=== PATIENT | male | born 1950 | race Caucasian/White ===

== ENCOUNTER → 2019-04-15 13:45 | Outpatient (BNVA) | payer MEDICAID, SELFPAY | PROVIDERS: Family Provider Nurse Practitioner Family; PCP Nurse Practitioner Family; Visit Provider Nurse Practitioner Family | DX: R22.32 Localized swelling, mass and lump, left upper limb (principal); J44.1 Chronic obstructive pulmonary disease with (acute) exacerbation | CPT/HCPCS: 73130; 80053; 85025 ==

== ENCOUNTER → 2019-07-15 14:45 | Outpatient (BNVA) | payer MEDICAID, SELFPAY | PROVIDERS: Family Provider Nurse Practitioner Family; PCP Nurse Practitioner Family; Visit Provider Nurse Practitioner | DX: J44.9 Chronic obstructive pulmonary disease, unspecified (principal); L72.0 Epidermal cyst | CPT/HCPCS: 73130 ==

== ENCOUNTER → 2020-07-30 14:45 | Outpatient (BNVA) | payer MEDICAID, SELFPAY | PROVIDERS: Family Provider Nurse Practitioner Family; PCP Nurse Practitioner Family; Visit Provider Nurse Practitioner | DX: J44.9 Chronic obstructive pulmonary disease, unspecified (principal); Z13.6 Encounter for screening for cardiovascular disorders | CPT/HCPCS: 80053; 80061; 85025 ==

== ENCOUNTER → 2020-10-16 00:01 | Outpatient (BNVA) | payer MEDICAID, SELFPAY | PROVIDERS: Family Provider Nurse Practitioner Family; PCP Nurse Practitioner Family; Visit Provider Surgery | DX: Z01.812 Encounter for preprocedural laboratory examination (principal); Z20.822 Contact with and (suspected) exposure to COVID-19 | CPT/HCPCS: 87635 ==

== ENCOUNTER 2020-11-04 07:07 | Day surgery (SDC) | payer MEDICAID, SELFPAY ==
[2020-11-03 12:17] VITALS: BMI 24.2
[2020-11-04 07:23] VITALS: BP 161/96; PULSE 60; RESP 18; TEMP 36.5; O2SAT 95
[2020-11-04] MEDS: sodium chloride 0.9% 1,000 ML 30 ML IV (07:41)
--- NOTE | 2020-11-04 07:42 | ANES.PREANE2 ---
Pre-Anesthetic Assessment Pre-Anesthetic Assessment: Height/Weight: Height 1.68 m Weight 68.039 kg Temp Pulse Resp BP Pulse Ox 97.7 F 60 18 161/96 95 11/04/20 07:23 11/04/20 07:23 11/04/20 07:23 11/04/20 07:23 11/04/20 07:23 Preop Diagnosis: Mass left ring finger Proposed Procedure: Operation Date: 11/04/20 07:00 Proposed Procedures p excision of finger mass w/ possible skin graft 68345 L72.0(Left) - Anderson Bullard MD Was Beta Aaliyah taken within 24 hours: N/A Was Clonidine taken within 24 hours: N/A Last intake: Intake Last Liquid Date 11/03/20 Last Liquid Time 20:00 Last Solid Date 11/03/20 Last Solid Time 20:00 Social: Social History: No alcohol and No tobacco Exam: Pre-Anes Outpt Exam: alert, oriented x 3, clear to auscultation bilaterally and regular rate & rhythm Airway: Submandibular: WNL Cervical ROM: WNL MP: 2 Dentition: Loose Additional comments: Several missing History/ROS: No significant history except as noted and No significant complaints Pulmonary: Pulmonary: COPD and SOB CV/HEM: CV/HEM: None reported : : None reported Hepatic: Hepatic: None reported GI: GI: None reported Metabolic: Metabolic: None reported Musc/skel: Musc/skel: None reported Neuropsych: Neuropsych: None reported Anesthetic Plan: ASA status: 3 Anesthesia: Anesthesia Evaluation and MAC Risk of > 500 ml blood loss (7ml/kg in children): No Meds/Allergies Current Medications: Current Medications Generic Name Dose Route Start Last Admin Trade Name Freq PRN Reason Stop Dose Admin Sodium Chloride 1,000 mls @ 30 ml s/hr 11/04/20 07:30 11/04/20 07:41 Sodium Chloride 0.9% IV 11/05/20 07:29 30 mls/hr .Q24H MANUEL Administration PFSH Anesthesia PFSH: Medical History (Updated 09/22/20 @ 17:13 by Anderson Bullard MD) COPD (chronic obstructive pulmonary disease) Surgical History History of lung surgery Right lung 2010 Family History Denies family history of Diabetes Cancer Hypertension Social History Second hand smoke exposure: No Smoking risk assessment/counseling performed?: No Alcohol intake: never Desire information about alcohol rehabilitation?: No Counseling given: No Desire information about substance/drug rehabilitation?: No Counseling given: No Adopted: No Caregiver/support person: No Lives independently: Yes Household members: family Marital status: Single Number of children: 0 service: No Current occupational status: unemployed History of recent travel: No Current gender identity: Male Data Anesthesia Cardiac Studies: No Data to Display
--- NOTE | 2020-11-04 07:45 | P.HP_ITS ---
Same Day Surgery H&P Indication for Procedure/HPI DATE OF PROCEDURE: November 04, 2020 CHIEF COMPLAINT/INDICATIONFOR SURGICAL PROCEDURE: subcutaneous mass finger PREOP DIAGNOSIS: Mass left ring finger PLANNED PROCEDRUE: Operation Date: 11/04/20 07:00 Proposed Procedures p excision of finger mass w/ possible skin graft 32740 L72.0(Left) - Anderson Bullard MD Medications/Allergies* Allergies/Adverse Reactions Allergy/AdvReac Type Severity Reaction Status Date / Time No Known Allergies Allergy Verified 11/03/20 12:16 Current Medications: Generic Name Dose Route Start Last Admin Trade Name Freq PRN Reason Stop Dose Admin Sodium Chloride 1,000 mls @ 30 mls/hr 11/04/20 07:30 11/04/20 07:41 Sodium Chloride 0.9% IV 11/05/20 07:29 30 mls/hr .Q24H MANUEL Administration Pertinent History/Comorbid Conditions* Medical History (Updated 09/22/20 @ 17:13 by Anderson Bullard MD) COPD (chronic obstructive pulmonary disease) Surgical History (Updated 07/15/19 @ 14:00 by PAUL De La Cruz-C) History of lung surgery Right lung 2010 Family History (Updated 07/15/19 @ 13:47 by JONNA Toledo) Denies family history of Diabetes Cancer Hypertension Social History Second hand smoke exposure: No Smoking risk assessment/counseling performed?: No Alcohol intake: never Desire information about alcohol rehabilitation?: No Counseling given: No Desire information about substance/drug rehabilitation?: No Counseling given: No Adopted: No Caregiver/support person: No Lives independently: Yes Household members: family Marital status: Single Number of children: 0 service: No Current occupational status: unemployed History of recent travel: No Current gender identity: Male Pertinent Exam Findings alert, oriented x 3, regular rate & rhythm and operative site marked Recommendations Surgery/Procedure today Coding Level of Care Code Acute 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
[2020-11-04] MEDS: lidocaine 1% INJ 20 mL SUBCUT (08:13)
--- NOTE | 2020-11-04 08:42 | PM.OP ---
Operative Report Date of procedure: November 04, 2020 Pre-op Diagnosis: Subcutaneous mass left ring finger Post-op Diagnosis: 5 x 3 x 3 cm subcutaneous mass left ring finger Procedure Done: Excision of subcutaneous mass measuring 5 x 3 x 3 cm left ring finger Specimens removed/disposition: Mass left ring finger Surgeon: Anderson Bullard Anesthesia: MAC and General Condition: stable Disposition: PACU Procedure: The patient was taken to the operating room and placed under MAC and the left hand was prepped and draped in a sterile manner. 15 cc of 1% lidocaine with 0.5% Marcaine was infiltrated at the base of the left ring finger for digital block. The mass measured 5 x 3 x 3 cm on the dorsal aspect of the left ring finger over the first phalanx. Using a 15 blade 5 cm incision was made and the subcutaneous mass was dissected free from the surrounding skin and underlying tendon sheath. Excess skin was excised using a fresh 15 blade and the subcutaneous tissues were approximated using interrupted 3-0 Vicryl suture and skin was closed using running subcuticular 4-0 Monocryl suture and Dermabond. Finger splint was placed to avoid excessive flexion and wrapped with Kerlix gauze. The patient was transferred to recovery room in stable condition
[2020-11-04 09:35] VITALS: BP 142/68; PULSE 66; RESP 20; TEMP 36.3; O2SAT 99
[2020-11-04 09:40] VITALS: BP 144/83; PULSE 57; RESP 17; O2SAT 97
[2020-11-04 09:45] VITALS: BP 143/69; PULSE 55; RESP 17; TEMP 36.6; O2SAT 97
[2020-11-04 10:05] VITALS: BP 164/79; PULSE 54; RESP 18; O2SAT 99
--- NOTE | 2020-11-04 14:00 | ANE.PACU2 ---
Inpatient post-anesthesia follow up: Airway intact: Yes Vital signs: Temperature 97.8 F Pulse Rate 54 Respiratory Rate 18 Blood Pressure 164/79 Pulse Oximetry 99 Oxygen Delivery Me thod Nasal Cannula Oxygen Flow Rate Fraction of Inspir ed Oxygen Hydration adequate: Yes Nausea and vomiting: No Pain level: 1 Mental status: Baseline
== END 2020-11-04 10:33 | disposition home or self-care (01) ==
PROVIDERS: PCP Nurse Practitioner Family; Visit Provider Surgery
PROC: (CPT 11426; principal; 2020-11-04 07:00)
DX: D17.39 Benign lipomatous neoplasm of skin and subcutaneous tissue of other sites (principal); L98.9 Disorder of the skin and subcutaneous tissue, unspecified; J44.9 Chronic obstructive pulmonary disease, unspecified
CPT/HCPCS: 11426; 12042; 88304; J0690; J1100; J2405; J2704; J3490; J7030

== ENCOUNTER 2021-08-07 18:12 | Emergency (ER) | payer MEDICAID, SELFPAY ==
[2021-08-07 18:36] VITALS: BP 162/85; PULSE 102; RESP 22; TEMP 37.8; O2SAT 90; BMI 24.2
[2021-08-07 18:40] VITALS: O2SAT 91
[2021-08-07 22:00] LABS: Hematocrit 51.8 % (42.0-52.0); Hemoglobin 17.7 g/dL (11.7-16.6); Lymphocytes # 0.8 10^3/uL (0.8-4.8); Lymphocytes % 25.8 %; Mean Corpuscular HGB Conc 34.2 g/dL (30.0-36.0); Mean Corpuscular Hemoglobin 28.9 pg (28.0-34.0); Mean Corpuscular Volume 84.5 fl (80-94); Mean Platelet Volume 10.9 fL (7.4-10.4); Monocytes # 0.2 10^3/uL (0.2-0.9); Monocytes % 6.7 %; Neutrophils # 1.95 10^3/uL (1.8-7.7); Neutrophils % 65.5 %; Nucleated Red Blood Cells % 0 %; Platelet Count 56 10^3/cmm (130-400); Red Blood Count 6.13 10^6/uL (4.1-5.3); Red Cell Distribution Width 12.8 % (12.1-15.1)
[2021-08-07 22:17] VITALS: BP 160/98; PULSE 94; RESP 20; TEMP 37.8; O2SAT 97
[2021-08-07 22:25] LABS: Alanine Aminotransferase 28 U/L (0-41); Albumin Level 4.4 g/dL (3.5-5.2); Alkaline Phosphatase 101 IU/L (40-130); Anion Gap 14.4 (5-19); Aspartate Amino Transferase 42 U/L (0-40); Blood Urea Nitrogen 27 mg/dL (8-23); Calcium 9.6 mg/dL (8.5-10.5); Carbon Dioxide 30 mmol/L (22-29); Chloride 91 mmol/L (98-107); Glomerular Filtration Rate 59.9 mL/min (90-130); Glucose 107 mg/dL (65-115); Lipase 22 U/L (13-60); Osmolality Calculated 278 mOsm/kg (285-295); Potassium 4.4 mmol/L (3.5-5.1); Sodium 131 mmol/L (136-145); Total Bilirubin 0.9 mg/dL (0.15-1.2); Total Protein 7.4 g/dL (6.6-8.7)
[2021-08-07 22:28] LABS: Influenza A by IFA Negative (Negative); Influenza B by IFA Negative (Negative)
--- NOTE | 2021-08-07 22:41 | ED_ITS ---
Documented by User: Juju Hickey MD 08/09/21 16:46 HPI - General Adult General: Chief complaint: General Medical Stated complaint: DECREASED APPETITE Time Seen by Provider: 08/07/21 21:48 History of Present Illness: Patient is a 71-year-old male with a history of prior left-sided pneumonectomy, COPD who presents to the emergency room for evaluation of abdominal pain, chest pain, and headache. Patient tells me that she has been having symptoms for last 3 to 4 days. Patient has not imaging chest pressure lasting for 3 to 4 minutes at a time. Patient said the chest pressure is now worse with exertion, is not pleuritic and does not radiate towards the back. Patient denies any cough, runny nose sore throat, fever or chills. In addition, patient reports generalized abdominal pain that shoots towards the chest. Patient tells me that during these episodes he also has headache. Dull please not worse with p.o. intake. Patient tells me that headache lasts for a few minutes at a time. Patient denies any focal neurological deficits including weakness in the arms or legs, language finding difficulty, expressive aphasia, diplopia, facial droops or other neurological symptoms patient patient denies any melena/hematochezia, or complaints at thi s time. He currently does not have any of the symptoms of chest pain, headache, or abdominal pain. Patient denies any sick contacts around him. Patient denies any complaints at the present time. Onset: 3-4 days ago Duration:3-4 days Location:home Severity:mild/moderate Associated symptoms: Reports chest pain; Deny dyspnea, nausea, rash, palpitations or vomiting Review of Systems Const: Denies: fever(s) or chills Eyes: Denies: change in vision ENMT: Denies: mouth pain Card: Reports: chest pain; Denies: palpitations Resp: Denies: dyspnea or non-productive cough GI: Reports: abdominal pain; Denies: nausea, vomiting or diarrhea : Denies: dysuria Musc: Denies: extremity pain Skin/Breast: Denies: rash or new lesions Neuro: Reports: other (headache); Denies: weakness in extremities Psych: Reports: other (Normal mood) Goldy/Lymph: Denies: easy bruising PFS ED PFSH: Medical History COPD (chronic obstructive pulmonary disease) Surgical History H/O excision of mass (11/04/20) left ring finger History of lung surgery Right lung 2010 Family History Denies family history of Diabetes Cancer Hypertension Social History Smoking and tobacco status: never smoked Second hand smoke exposure: No Smoking risk assessment/counseling performed?: No Alcohol intake: never Desire information about alcohol rehabilitation?: No Counseling given: No Desire information about substance/drug rehabilitation?: No Counseling given: No Adopted: No Caregiver/support person: No Lives independently: Yes Household members: family Marital status: Single Number of children: 0 service: No Current occupational status: unemployed History of recent travel: No Current gender identity: Male Physical Exam Const: COMMON NORMALS: alert HENMT: COMMON NORMALS: atraumatic HEAD & SCALP: atraumatic MOUTH: moist mucous membranes not abnormal Eye: COMMON NORMALS: EOMs intact bilaterally and conjunctivae normal CONJUNCTIVA: Yes conjunctivae normal Neck/C-Spine: COMMON NORMALS: full ROM and supple Resp: COMMON NORMALS: normal respiratory effort and clear to auscultation bilaterally AUSCULTATION: clear to auscultation bilaterally Cardio: COMMON NORMALS: regular rate RATE: regular rate GI: COMMON NORMALS: Soft to palpation PALPATION: Yes Soft to palpation OTHER: + Mild diffuse tenderness palpation. NO guarding rebound, guarding, rigidity. No CVA tenderness to percussion. Neg Mario/Neg McBurney's point tenderness, no suprabupic tenderness to palpation. Extremity: COMMON NORMALS: full ROM Neuro: SENSORIUM/ORIENTATION: Yes alert MOTOR EXAM: No Abnormal motor strength present and Other motor observations present (no focal motor deficits) Psych: COMMON NORMALS: speech normal SPEECH: Yes normal speech MOOD & AFFECT: Yes euthymic mood Course Vital Signs: Vital signs: Vital Signs Temperature 99.0 F 08/08/21 00:02 Pulse Rate 88 08/08/21 06:20 Respiratory Rate 18 08/08/21 06:20 Blood Pressure 143/76 08/08/21 06:20 Pulse Oximetry 98 08/08/21 06:20 MDM - General Adult Medical Decision Making 71-year-old male with a history of prior pneumonectomy, COPD who presents e [facility] room with multiple complaints including headache, chest pain, abdominal pain x3 to 4 days. On exam, patient is diffuse abdominal tenderness palpation. She was pedal pulses bilaterally. Rest of physical exam unremarkable. Patient received 1 L of fluids. X-ray chest negative for any acute finding. Lab workup and CT abd+pelvis pending at this time. Case signed out to Dr. Sharif. Lab Data : 08/07/21 21:50 08/07/21 21:50 Radiology Impressions Abdomen/Pelvis CT 08/07/21 22:42 IMPRESSION: 1. 1.3 cm left lower lobe nodule. Followup as discussed below. 2. Moderate paraseptal emphysema. 3. Mild centrilobular emphysema. 4. Xyrq-ig-lmyaynqw retained feces in the rectosigmoid colon. For both low risk and high risk patients, consider CT Chest at 3 months, PET/CT, or biopsy. (Reference: Shi) References: Shi Adkins et al. Guidelines for Management of Incidental Pulmonary Nodules Detected on CT Images: From the Fleischner Society 2017. Radiology. 2017;284(1):228-243. COMMENTS: Consistent with the [place] [employer]'s Incidental Findings Committee white paper (J Am Justyn Radiol 2018): Any incidental renal lesion less than 1 cm or classified as too small to characterize, or any incidental cystic renal lesion characterized as simple-appearing, is likely benign. No follow-up imaging is recommended for these lesions per consensus recommendations based on imaging criteria. Chest X-Ray 08/07/21 22:42 IMPRESSION: 1. Stable moderate to severe COPD . 2. Correlation with shallow 5 degree RANDLE and BENIN[place] chest x-rays versus CT chest may be helpful complete evaluation. Laboratory Results WBC 3.0 10^3/uL (4.0-10.0) L 08/07/21 21:50 RBC 6.13 10^6/uL (4.1-5.3) H 08/07/21 21:50 Hgb 17.7 g/dL (11.7-16.6) H 08/07/21 21:50 Hct 51.8 % (42.0-52.0) 08/07/21 21:50 MCV 84.5 fl (80-94) 08/07/21 21:50 MCH 28.9 pg (28.0-34.0) 08/07/21 21:50 MCHC 34.2 g/dL (30.0-36.0) 08/07/21 21:50 RDW 12.8 % (12.1-15.1) 08/07/21 21:50 Plt Count 56 10^3/cmm (130-400) L 08/07/21 21:50 MPV 10.9 fL (7.4-10.4) H 08/07/21 21:50 Neut % (Auto) 65.5 % 08/07/21 21:50 Lymph % (Auto) 25.8 % 08/07/21 21:50 Ross % (Auto) 6.7 % 08/07/21 21:50 Eos % (Auto) 0.0 % 08/07/21 21:50 Baso % (Auto) 1.0 % 08/07/21 21:50 Neut # (Auto) 1.95 10^3/uL (1.8-7.7) 08/07/21 21:50 Lymph # (Auto) 0.8 10^3/uL (0.8-4.8) 08/07/21 21:50 Ross # (Auto) 0.2 10^3/uL (0.2-0.9) 08/07/21 21:50 Eos # (Auto) 0.0 10^3/uL (0.0-0.8) 08/07/21 21:50 Baso # (Auto) 0.0 10^3/uL (0.0-0.1) 08/07/21 21:50 Nucleated RBC % (auto) 0 % 08/07/21 21:50 Nucleated RBCs # 0.0 /100WBC 08/07/21 21:50 Sodium 131 mmol/L (136-145) L 08/07/21 21:50 Potassium 4.4 mmol/L (3.5-5.1) 08/07/21 21:50 Chloride 91 mmol/L (98-107) L 08/07/21 21:50 Carbon Dioxide 30 mmol/L (22-29) H 08/07/21 21:50 Anion Gap 14.4 (5-19) 08/07/21 21:50 BUN 27 mg/dL (8-23) H 08/07/21 21:50 Creatinine 1.2 mg/dL (0.7-1.2) 08/07/21 21:50 GFR Calculation 59.9 mL/min (90-130) L 08/07/21 21:50 Glucose 107 mg/dL (65-115) 08/07/21 21:50 Calculated Osmolality 278 mOsm/kg (285-295) L 08/07/21 21:50 Calcium 9.6 mg/dL (8.5-10.5) 08/07/21 21:50 Total Bilirubin 0.9 mg/dL (0.15-1.2) 08/07/21 21:50 AST 42 U/L (0-40) H 08/07/21 21:50 ALT 28 U/L (0-41) 08/07/21 21:50 Alkaline Phosphatase 101 IU/L (40-130) 08/07/21 21:50 Troponin T Baseline 14 ng/L (0-15) 08/07/21 21:50 Total Protein 7.4 g/dL (6.6-8.7) 08/07/21 21:50 Albumin 4.4 g/dL (3.5-5.2) 08/07/21 21:50 Globulin 3.0 g/dL (1.3-4.6) 08/07/21 21:50 Lipase 22 U/L (13-60) 08/07/21 21:50 Urine Color Dark yellow (Yellow) 08/07/21 22:23 Urine Appearance Clear (CLEAR) 08/07/21 22:23 Urine pH 5 (5-7) 08/07/21 22:23 Ur Specific [place] 1.025 (1.005-1.030) 08/07/21 22:23 Urine Protein Trace (Negative) 08/07/21 22:23 Urine Glucose (UA) Norm (Normal) 08/07/21 22: Urine Ketones 1+ (Negative) H 08/07/21 22:23 Urine Blood 3+ (Negative) H 08/07/21 22:23 Urine Nitrate Negative (Negative) 08/07/21 22: Urine Bilirubin 1+ (Negative) H 08/07/21 22:23 Urine Urobilinogen 8 mg/dL (Negative) H 08/07/21 22:23 Ur Leukocyte Esterase Negative (Negative) 08/07/21 22:23 Urine RBC 15-25 /hpf (0-2) H 08/07/21 22:23 Urine WBC 0-4 /hpf (0-5) H 08/07/21 22:23 Ur Squamous Epith Cells 0-4 /hpf (0-5) H 08/07/21 22:23 Amorphous Sediment Trace /hpf 08/07/21 22:23 Urine Bacteria Trace /hpf (NONE) 08/07/21 22:23 Urine Mucus 2+ /hpf 08/07/21 22:23 Coronavirus 229E (PCR) Not detected (NOT DETECT) 08/07/21 21:50 Influenza Type A Ag Negative (Negative) 08/07/21 22:00 Influenza Type B Ag Negative (Negative) 08/07/21 22:00 SARS-CoV-2 (PCR) Not detected (NOT DETECT) 08/07/21 21:50 Discharge Plan Discharge Patient Disposition: Home Clinical Impression: Abdominal pain, Chest pain, Constipation Condition: Stable Prescriptions: New magnesium citrate Solution 296 ml PO DAILY PRN (Reason: constipation) Qty: 296 0RF No Action albuterol sulfate [ProAir HFA] 90 mcg/actuation HFA aerosol inhaler 2 puff inhalation QID PRN (Reason: shortness of breath or wheezing) 30 Days Qty: 6.7 5RF albuterol sulfate 2.5 mg /3 mL (0.083 %) solution for nebulization 2.5 mg INHALATION TID PRN (Reason: wheezing) Qty: 180 5RF hydrocodone-acetaminophen 5-325 mg tablet 1 tab PO Q6H PRN (Reason: pain) Qty: 20 0RF Zofran 4 mg tablet 4 mg PO Q6H PRN (Reason: nausea and vomiting) Qty: 20 0RF Colace 100 mg capsule 100 mg PO BID Qty: 30 0RF Discharge Orders: Discharge ED (Routine); Ordered 08/08/21 Ordered By: Deni Sharif Referrals: Elinor Goldsmith FNP-C [Primary Care Provider] - 1-3 days Patient Instructions: Chest Pain (ED), Abdominal Pain (ED) Activity Restrictions/Additional Instructions: Come back to the emergency room if your chest pain worsens, have any fever or chills, worsening shortness of breath, worsening exertional lightheadedness, or any new or concerning complaints. Please come back if you have any worsening abdominal pain, fever or chills, nausea or vomiting, diarrhea, blood in the stool, inability hold down liquid or solids, or any new concerning complaints. Coding Level of Care Code ED Dispatcher Motor Vehicle for Chg Fwd Exam Comprehensive Documented by User: Deni Sharif, DO 08/08/21 15:39 HPI - General Adult General: Chief complaint: General Medical Stated complaint: DECREASED APPETITE Time Seen by Provider: 08/07/21 21:48 [facility] ED PFSH: Medical History COPD (chronic obstructive pulmonary disease) Surgical History H/O excision of mass (11/04/20) left ring finger History of lung surgery Right lung 2010 Family History Denies family history of Diabetes Cancer Hypertension Social History Smoking and tobacco status: never smoked Second hand smoke exposure: No Smoking risk assessment/counseling performed?: No Alcohol intake: never Desire information about alcohol rehabilitation?: No Counseling given: No Desire information about substance/drug rehabilitation?: No Counseling given: No Adopted: No Caregiver/support person: No Lives independently: Yes Household members: family Marital status: Single Number of children: 0 service: No Current occupational status: unemployed History of recent travel: No Current gender identity: Male Course Vital Signs: Vital signs: Vital Signs Temperature 99.0 F 08/08/21 00:02 Pulse Rate 88 08/08/21 06:20 Respiratory Rate 18 08/08/21 06:20 Blood Pressure 143/76 08/08/21 06:20 Pulse Oximetry 98 08/08/21 06:20 MDM - General Adult Medical Decision Making 71-year-old male with a history of prior pneumonectomy, COPD who presents emergency room with multiple complaints including headache, chest pain, abdominal pain x3 to 4 days. On exam, patient is diffuse abdominal tenderness palpation. She was pedal pulses bilaterally. Rest of physical exam unremarkable. Patient received 1 L of fluids. X-ray chest negative for any acute finding. Lab workup and CT abd+pelvis pending at this time. Case signed out to Dr. Sharif. Patient signed out to me by the previous physician at shift change. Imaging is completed. X ray shows no acute finding. CT of the abdomen and pelvis shows some Constipation. Otherwise no acute findings. He's feeling improved here. He'll be allowed home. Lab Data : 08/07/21 21:50 08/07/21 21:50 Radiology Impressions Abdomen/Pelvis CT 08/07/21 22:42 IMPRESSION: 1. 1.3 cm left lower lobe nodule. Followup as discussed below. 2. Moderate paraseptal emphysema. 3. Mild centrilobular emphysema. 4. Ynje-ju-viwuvtul retained feces in the rectosigmoid colon. For both low risk and high risk patients, consider CT Chest at 3 months, PET/CT, or biopsy. (Reference: Shi) References: Jemimahono H, et al. Guidelines for Management of Incidental Pulmonary Nodules Detected on CT Images: From the Fleischner Society 2017. Radiology. 2017;284(1):228-243. COMMENTS: Consistent with the [place] [employer]'s Incidental Findings Committee white paper (J Am Justyn Radiol 2018): Any incidental renal lesion less than 1 cm or classified as too small to characterize, or any incidental cystic renal lesion characterized as simple-appearing, is likely benign. No follow-up imaging is recommended for these lesions per consensus recommendations based on imaging criteria. Chest X-Ray 08/07/21 22:42 IMPRESSION: 1. Stable moderate to severe COPD . 2. Correlation with shallow 5 degree RADNLE and BENINESE chest x-rays versus CT chest may be helpful complete evaluation. Laboratory Results WBC 3.0 10^3/uL (4.0-10.0) L 08/07/21 21:50 RBC 6.13 10^6/uL (4.1-5.3) H 08/07/21 21:50 Hgb 17.7 g/dL (11.7-16.6) H 08/07/21 21:50 Hct 51.8 % (42.0-52.0) 08/07/21 21:50 MCV 84.5 fl (80-94) 08/07/21 21:50 MCH 28.9 pg (28.0-34.0) 08/07/21 21:50 MCHC 34.2 g/dL (30.0-36.0) 08/07/21 21:50 RDW 12.8 % (12.1-15.1) 08/07/21 21:50 Plt Count 56 10^3/cmm (130-400) L 08/07/21 21:50 MPV 10.9 fL (7.4-10.4) H 08/07/21 21:50 Neut % (Auto) 65.5 % 08/07/21 21:50 Lymph % (Auto) 25.8 % 08/07/21 21:50 Ross % (Auto) 6.7 % 08/07/21 21:50 Eos % (Auto) 0.0 % 08/07/21 21:50 Baso % (Auto) 1.0 % 08/07/21 21:50 Neut # (Auto) 1.95 10^3/uL (1.8-7.7) 08/07/21 21:50 Lymph # (Auto) 0.8 10^3/uL (0.8-4.8) 08/07/21 21:50 Ross # (Auto) 0.2 10^3/uL (0.2-0.9) 08/07/21 21:50 Eos # (Auto) 0.0 10^3/uL (0.0-0.8) 08/07/21 21:50 Baso # (Auto) 0.0 10^3/uL (0.0-0.1) 08/07/21 21:50 Nucleated RBC % (auto) 0 % 08/07/21 21:50 Nucleated RBCs # 0.0 /100WBC 08/07/21 21:50 Sodium 131 mmol/L (136-145) L 08/07/21 21:50 Potassium 4.4 mmol/L (3.5-5.1) 08/07/21 21:50 Chloride 91 mmol/L (98-107) L 08/07/21 21:50 Carbon Dioxide 30 mmol/L (22-29) H 08/07/21 21:50 Anion Gap 14.4 (5-19) 08/07/21 21:50 BUN 27 mg/dL (8-23) H 08/07/21 21:50 Creatinine 1.2 mg/dL (0.7-1.2) 08/07/21 21:50 GFR Calculation 59.9 mL/min (90-130) L 08/07/21 21:50 Glucose 107 mg/dL (65-115) 08/07/21 21:50 Calculated Osmolality 278 mOsm/kg (285-295) L 08/07/21 21:50 Calcium 9.6 mg/dL (8.5-10.5) 08/07/21 21:50 Total Bilirubin 0.9 mg/dL (0.15-1.2) 08/07/21 21:50 AST 42 U/L (0-40) H 08/07/21 21:50 ALT 28 U/L (0-41) 08/07/21 21:50 Alkaline Phosphatase 101 IU/L (40-130) 08/07/21 21:50 Troponin T Baseline 14 ng/L (0-15) 08/07/21 21:50 Total Protein 7.4 g/dL (6.6-8.7) 08/07/21 21:50 Albumin 4.4 g/dL (3.5-5.2) 08/07/21 21:50 Globulin 3.0 g/dL (1.3-4.6) 08/07/21 21:50 Lipase 22 U/L (13-60) 08/07/21 21:50 Urine Color Dark yellow (Yellow) 08/07/21 22:23 Urine Appearance Clear (CLEAR) 08/07/21 22:23 Urine pH 5 (5-7) 08/07/21 22:23 Ur Specific [place] 1.025 (1.005-1.030) 08/07/21 22:23 Urine Protein Trace (Negative) 08/07/21: Urine Glucose (UA) Norm (Normal) 08/07/21 22:23 Urine Ketones 1+ (Negative) H 08/07/21 22:23 Urine Blood 3+ (Negative) H 08/07/21 22:23 Urine Nitrate Negative (Negative) 08/07/21 22:23 Urine Bilirubin 1+ (Negative) H 08/07/21 22:23 Urine Urobilinogen 8 mg/dL (Negative) H 08/07/21 22:23 Ur Leukocyte Esterase Negative (Negative) 08/07/21 22:23 Urine RBC 15-25 /hpf (0-2) H 08/07/21 22:23 Urine WBC 0-4 /hpf (0-5) H 08/07/21 22:23 Ur Squamous Epith Cells 0-4 /hpf (0-5) H 08/07/21 22:23 Amorphous Sediment Trace /hpf 08/07/21 22:23 Urine Bacteria Trace /hpf (NONE) 08/07/21 22:23 Urine Mucus 2+ /hpf 08/07/21 22:23 Coronavirus 229E (PCR) Not detected (NOT DETECT) 08/07/21 21:50 Influenza Type A Ag Negative (Negative) 08/07/21 22:00 Influenza Type B Ag Negative (Negative) 08/07/21 22:00 SARS-CoV-2 (PCR) Not detected (NOT DETECT) 08/07/21 21:50 Discharge Plan Discharge Patient Disposition: Home Clinical Impression: Abdominal pain, Chest pain, Constipation Condition: Stable Prescriptions: New magnesium citrate Solution 296 ml PO DAILY PRN (Reason: constipation) Qty: 296 0RF No Action albuterol sulfate [ProAir HFA] 90 mcg/actuation HFA aerosol inhaler 2 puff inhalation QID PRN (Reason: shortness of breath or wheezing) 30 Days Qty: 6.7 5RF albuterol sulfate 2.5 mg /3 mL (0.083 %) solution for nebulization 2.5 mg INHALATION TID PRN (Reason: wheezing) Qty: 180 5RF hydrocodone-acetaminophen 5-325 mg tablet 1 tab PO Q6H PRN (Reason: pain) Qty: 20 0RF Zofran 4 mg tablet 4 mg PO Q6H PRN (Reason: nausea and vomiting) Qty: 20 0RF Colace 100 mg capsule 100 mg PO BID Qty: 30 0RF Discharge Orders: Discharge ED (Routine); Ordered 08/08/21 Ordered By: Deni Sharif Referrals: Elinor Goldsmith FNP-C [Primary Care Provider] - 1-3 days Patient Instructions: Chest Pain (ED), Abdominal Pain (ED) Activity Restrictions/Additional Instructions: Come back to the emergency room if your chest pain worsens, have any fever or chills, worsening shortness of breath, worsening exertional lightheadedness, or any new or concerning complaints. Please come back if you have any worsening abdominal pain, fever or chills, nausea or vomiting, diarrhea, blood in the stool, inability hold down liquid or solids, or any new concerning complaints. Coding Level of Care Code ED Dispatcher Motor Vehicle for [place] Fwd Exam Comprehensive
--- NOTE | 2021-08-07 22:42 | XRR_ITS ---
PROCEDURE INFORMATION: Exam: XR Chest Exam date and time: 08/07/2021 11:42 PM Age: 71 years old Clinical indication: Angina; Additional info: Chest pain TECHNIQUE: Imaging protocol: Radiologic exam of the chest. Views: 1 view. COMPARISON: CR Chest 2 views* [id number] 07/14/2017 2:14 PM FINDINGS: Lungs: Stable moderate to severe COPD . Pleural spaces: Unremarkable. No pleural effusion. No pneumothorax. Heart/Mediastinum: Unremarkable. No cardiomegaly. Bones/joints: Stable sternotomy. Soft tissues: 1.5 cm nipple shadow over the left anterior 6th rib versus pulmonary nodule. Correlation with shallow 5 degree RANDLE and [place] chest x-rays versus CT chest may be helpful complete evaluation. XR/XR chest 1V portable [id number] IMPRESSION: 1. Stable moderate to severe COPD . 2. Correlation with shallow 5 degree [place] and [place] chest x-rays versus CT chest may be helpful complete evaluation.
--- NOTE | 2021-08-07 22:42 | CTR_ITS ---
PROCEDURE INFORMATION: Exam: CT Abdomen And Pelvis Without Contrast Exam date and time: 08/07/2021 11:09 PM Age: 71 years old Clinical indication: Constipation; Patient HX: [place] of appetite with no bm in 3-4 days. ; Additional info: Abd pain TECHNIQUE: Imaging protocol: Computed tomography of the abdomen and pelvis without contrast. Radiation optimization: All CT scans at this facility use at least one of these dose optimization techniques: automated exposure control; mA and/or kV adjustment per patient size (includes targeted exams where dose is matched to clinical indication); or iterative reconstruction. COMPARISON: No relevant prior studies available. RADIATION DOSE METRICS: Total DLP (mGy-cm): 1221.01 FINDINGS: Lungs: 1.3 cm left lower lobe nodule. Followup as discussed below. Moderate paraseptal emphysema. Mild centrilobular emphysema. Heart: Mild pericardial fluid and/or thickening. Liver: Normal. No mass. Gallbladder and bile ducts: Normal. No calcified stones. No ductal dilation. Pancreas: Normal. No ductal dilation. Spleen: Calcified splenic granulomas. Adrenal glands: Normal. No mass. Kidneys and ureters: Multiple right renal simple cysts with the largest measuring > 1.0 cm . Multiple left renal simple cysts with the largest measuring > 1.0 cm. 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 Normal variant. Stomach and bowel: Vxru-ek-juligakh retained feces in the rectosigmoid colon. Appendix: No evidence of appendicitis. Intraperitoneal space: Unremarkable. No free air. No significant fluid collection. Vasculature: Calcification of the abdominal aorta and/or iliac arteries consistent with atherosclerotic vessel disease. Lymph nodes: Unremarkable. No enlarged lymph nodes. Urinary bladder: Unremarkable as visualized. Reproductive: Unremarkable as visualized. Bones/joints: Previous sternotomy. Soft tissues: Unremarkable. CT/CT abdomen pelvis wo con [id number] IMPRESSION: 1. 1.3 cm left lower lobe nodule. Followup as discussed below. 2. Moderate paraseptal emphysema. 3. Mild centrilobular emphysema. 4. Tnkz-vl-yysnkpvc retained feces in the rectosigmoid colon. For both low risk and high risk patients, consider CT Chest at 3 months, PET/CT, or biopsy. (Reference: Shi) References: Shi Adkins et al. Guidelines for Management of Incidental Pulmonary Nodules Detected on CT Images: From the Fleischner Society 2017. Radiology. 2017;284(1):228-243. COMMENTS: Consistent with the [place] [employer]'s Incidental Findings Committee white paper (J Am Justyn Radiol 2018): Any incidental renal lesion less than 1 cm or classified as too small to characterize, or any incidental cystic renal lesion characterized as simple-appearing, is likely benign. No follow-up imaging is recommended for these lesions per consensus recommendations based on imaging criteria.
--- NOTE | 2021-08-07 22:42 | ECG_ITS ---
[facility] Test Date: 2021-08-07 Pat Name: Emile Ray Department: Room: Gender: Male Mail Room Clerk: : 1950 Requested By: Juju Hickey Order Number: [id number] Sampson MD: Alonzo Maya M.D. Measurements Intervals [place] Rate: 100 P: 85 RI: 134 QRS: 87 QRSD: 81 T: 73 QT: 316 QTc: 408 Interpretive Statements SINUS TACHYCARDIA WITH OCCASIONAL VENTRICULAR PREMATURE COMPLEXES WITH FREQUENT SUPRAVENTRICULAR PREMATURE COMPLEXES POSSIBLE ANTERIOR MYOCARDIAL INFARCTION , OF INDETERMINATE AGE [30 ms Q WAVE IN V3/V4, OR R < 0.2 mV IN V4] No previous ECG available for comparison Electronically Signed On 08-08-2021 12:28:51 CDT by Alonzo Maya M.D. [id number]
[2021-08-07 22:49] LABS: Glucose Urine UA Norm (Normal); Ketones Urine 1+ (Negative); Protein Urine Trace (Negative); Specific Gravity, Urine 1.025 (1.005-1.030); Urine Appearance Clear (CLEAR); Urine Color Dark Yellow (Yellow); pH Urine 5 (5-7)
[2021-08-07 22:50] LABS: Add Urine Microscopic? YES; Bilirubin Urine 1+ (Negative); Blood Urine 3+ (Negative); Leukocyte Esterase Urine Negative (Negative); Nitrate Urine Negative (Negative); Urobilinogen Urine 8 mg/dL (Negative)
[2021-08-07 22:52] LABS: Add Urine Culture? Yes; Amorphous Sediment Urine TRACE /hpf; Bacteria Urine TRACE /hpf; Mucus Urine 2+ /hpf; RBC Urine 15-25 /hpf (0-2); Squamous Epithelial Cell Urine 0-4 /hpf (0-5); WBC Urine 0-4 /hpf (0-5)
[2021-08-07 22:59] LABS: Slide Review Slide Review Perform
[2021-08-07] MEDS: sodium chloride 0.9% 1,000 ML 999 ML IV (22:59)
[2021-08-07 23:04] LABS: Troponin(5th) Baseline 14 ng/L (0-15)
[2021-08-07 23:41] LABS: Adenovirus Not Detected (NOT DETECT); Chlamydia Pneumoniae Not Detected (NOT DETECT); Coronavirus 229E,HKU1,NL63,OC4 Not Detected (NOT DETECT); Human Metapneumovirus Not Detected (NOT DETECT); Human Rhinovirus/Enterovirus Not Detected (NOT DETECT); Influenza A Not Detected (NOT DETECT); Influenza A H1 Not Detected (NOT DETECT); Influenza A H1-2009 Not Detected (NOT DETECT); Influenza A H3 Not Detected (NOT DETECT); Influenza B Not Detected (NOT DETECT); Mycoplasma Pneumoniae Not Detected (NOT DETECT); Parainfluenza Virus Type 1 Not Detected (NOT DETECT); Parainfluenza Virus Type 2 Not Detected (NOT DETECT); Parainfluenza Virus Type 3 Not Detected (NOT DETECT); Parainfluenza Virus Type 4 Not Detected (NOT DETECT); Respiratory Syncytial Virus A Not Detected (NOT DETECT); Respiratory Syncytial Virus B Not Detected (NOT DETECT); SARS-COV-2 Not Detected (NOT DETECT)
[2021-08-08 00:02] VITALS: BP 153/93; PULSE 91; RESP 18; TEMP 37.2; O2SAT 99
[2021-08-08 03:55] VITALS: BP 155/95; PULSE 89; RESP 18; O2SAT 97
[2021-08-08 06:20] VITALS: BP 143/76; PULSE 88; RESP 18; O2SAT 98
== END 2021-08-08 06:21 | disposition home or self-care (01) ==
PROVIDERS: Emergency Medicine; Emergency Provider Emergency Medicine; PCP Nurse Practitioner Family
DX: R10.9 Unspecified abdominal pain (principal); K59.00 Constipation, unspecified; R07.9 Chest pain, unspecified; J44.9 Chronic obstructive pulmonary disease, unspecified; Z20.822 Contact with and (suspected) exposure to COVID-19
CPT/HCPCS: 71045; 74176; 80053; 81001; 83690; 84484; 85025; 87086; 87635; 87804; 93005; 96360; 99285; J7030

== ENCOUNTER → 2021-12-07 13:28 | Outpatient (BNVA) | payer MEDICAID, SELFPAY | PROVIDERS: PCP Nurse Practitioner Family; Visit Provider Nurse Practitioner Family | DX: R63.4 Abnormal weight loss (principal) | CPT/HCPCS: 71046; 80053; 80061; 84443; 85025; 85651; 86140 ==

== ENCOUNTER → 2021-12-21 15:44 | Outpatient (BNVA) | payer MEDICAID, SELFPAY | PROVIDERS: PCP Nurse Practitioner Family; Visit Provider Nurse Practitioner | DX: R91.1 Solitary pulmonary nodule (principal); K59.01 Slow transit constipation; Z23 Encounter for immunization | CPT/HCPCS: 74018 ==

== ENCOUNTER 2022-02-11 18:37 | Inpatient (IN) | payer MEDICAID, SELFPAY ==
[2022-02-11 19:06] VITALS: BP 169/94; PULSE 105; RESP 22; O2SAT 85
--- NOTE | 2022-02-11 19:11 | ECG_ITS ---
[facility] Test Date: 2022-02-11 Pat Name: Emile Ray Department: Room: Gender: Male Editor: : 1950 Requested By: Ivone Bonilla Order Number: [id number] Sampson MD: Naye Simpson M.D. Measurements Intervals [place] Rate: 120 P: 81 ME: 122 QRS: 76 QRSD: 72 T: 65 QT: 301 QTc: 427 Interpretive Statements SINUS TACHYCARDIA WITH FREQUENT VENTRICULAR PREMATURE COMPLEXES WITH OCCASIONAL SUPRAVENTRICULAR PREMATURE COMPLEXES NONSPECIFIC T-WAVE ABNORMALITY ABNORMAL RHYTHM ECG Compared to ECG 08/07/2021 23:18:52 T-wave abnormality now present Myocardial infarct finding no longer present Electronically Signed On 02-11-2022 20:25:51 PPA TEACHER by Naye Simpson M.D. [id number]
--- NOTE | 2022-02-11 19:11 | XRR_ITS ---
PROCEDURE INFORMATION: Exam: XR Chest Exam date and time: 02/11/2022 7:18 PM Age: 72 years old Clinical indication: Pain; Shortness of breath; Chest pressure; Prior surgery; Surgery date: 6+ months; Surgery type: Lung; Additional info: SOB TECHNIQUE: Imaging protocol: Radiologic exam of the chest. Views: 1 view. COMPARISON: CR XR chest 2V* [id number] 12/07/2021 1:26 PM FINDINGS: Lungs: Extensive chronic postoperative changes in both upper lobes. The lungs are hyperinflated consistent with emphysema. No acute infiltrate or mass. Pleural spaces: Unremarkable. No pleural effusion. No pneumothorax. Heart/Mediastinum: Chronic mediastinal postop changes. Bones/joints: Unremarkable. XR/XR chest 1V portable [id number] IMPRESSION: 1. No acute findings. 2. Emphysema 3. Chronic bilateral upper lobe postop changes
--- NOTE | 2022-02-11 19:14 | ED_ITS ---
HPI - SOB/Dyspnea General: Chief Complaint: Shortness of Breath/Dyspnea Stated Complaint: CP/ SOB Time Seen by Provider: 02/11/22 19:08 Source: patient and EMS Mode of arrival: EMS Limitations: no limitations History of Present Illness: HPI Narrative: 72-year-old male who has extensive history of COPD, smoking history patient states that he had worsening cough fever shortness of breath of the last 2 days he states his wheezing and dyspnea increased today called EMS he was 70% on room air he did receive breathing treatment in route he is requiring 3 L to currently he does not wear oxygen at home states his cough has been worse than normal. He has had some mild pains in his chest. Associated symptoms: Deny abdominal pain, chest pain, nausea or vomiting Review of Systems Const: Reports: chills Eyes: Denies: blurry vision or eye discomfort ENMT: Denies: throat pain or dental pain Card: Denies: chest pain Resp: Reports: dyspnea, non-productive cough and wheezing GI: Denies: abdominal pain, nausea, vomiting or diarrhea : Denies: dysuria Musc: Denies: neck pain or back pain Skin/Breast: Denies: rash Neuro: Denies: headache(s) Psych: Denies: depression Goldy/Lymph: Denies: easy bruising All/Imm: Denies: urticaria PFSH ED PFSH: Medical History COPD (chronic obstructive pulmonary disease) Unintended weight loss Surgical History H/O excision of mass (11/04/20) left ring finger History of lung surgery Right lung 2010 Family History Denies family history of Diabetes Cancer Hypertension Social History Smoking and tobacco status: former smoker Second hand smoke exposure: No Smoking risk assessment/counseling performed?: No Alcohol intake: never Desire information about alcohol rehabilitation?: No Counseling given: No Desire information about substance/drug rehabilitation?: No Counseling given: No Adopted: No Caregiver/support person: No Lives independently: Yes Household members: family Marital status: Single Number of children: 0 service: No Current occupational status: unemployed History of recent travel: No Current gender identity: Male Physical Exam Const: COMMON NORMALS: patient oriented x3 GENERAL APPEARANCE: in distress and ill appearing HENMT: COMMON NORMALS: normocephalic and atraumatic HEAD & SCALP: normocephalic and atraumatic Eye: COMMON NORMALS: Equal, round and reactive pupils present and EOMs intact bilaterally PUPIL: Yes Equal, round and reactive pupils present Neck/C-Spine: COMMON NORMALS: full ROM and supple Chest: COMMONS NORMALS: normal inspection of the chest and normal palpation of entire chest wall Resp: EFFORT & INSPECTION: Yes tachypneic, Yes respiratory distress and Yes labored AUSCULTATION: wheezes Cardio: COMMON NORMALS: regular rate, regular rhythm and No murmurs present (Cardio) RATE: regular rate RHYTHM: regular rhythm GI: COMMON NORMALS: Normal to inspection, nondistended, normoactive bowel sounds present, Soft to palpation, non-tender and no masses PALPATION: Yes Soft to palpation Extremity: COMMON NORMALS: normal to inspection and full ROM Neuro: COMMON NORMALS: patient oriented x3, moves all extremities and no focal motor deficits Psych: COMMON NORMALS: mental status grossly normal, Normal thought process present and cooperative THOUGHT PROCESS: Normal thought process present Skin: COMMON NORMALS: no rashes or lesions noted and no wounds GENERAL SKIN EXAM: no rashes or lesions noted Course Vital Signs: Vital signs: Vital Signs Pulse Rate 105 H 02/11/22 19:06 Respiratory Rate 20 H 02/11/22 20:54 Blood Pressure 142/84 02/11/22 20:54 Pulse Oximetry 100 02/11/22 20:54 Oxygen Delivery Me thod 02/11/22 20:54 Oxygen Flow Rate 4 02/11/22 20:54 MDM - SOB/Dyspnea Medical Decision Making Patient presents here with a COPD exacerbation he has improved after breathing treatment he is still hypoxic I did turn his oxygen off and he desaturated into the 80s no signs of pneumonia no flu or COVID spoke to hospitalist will admit. Lab Data 02/11/22 19:16 02/11/22 19:16 Labs/Radiology: Radiology Impressions Chest X-Ray 02/11/22 19:11 IMPRESSION: 1. No acute findings. 2. Emphysema 3. Chronic bilateral upper lobe postop changes Laboratory Results WBC 13.7 10^3/uL (4.0-10.0) H 02/11/22 19:16 RBC 4.80 10^6/uL (4.1-5.3) 02/11/22 19:16 Hgb 14.2 g/dL (11.7-16.6) 02/11/22 19:16 Hct 43.8 % (42.0-52.0) 02/11/22 19:16 MCV 91.3 fl (80-94) 02/11/22 19:16 MCH 29.6 pg (28.0-34.0) 02/11/22 19:16 MCHC 32.4 g/dL (30.0-36.0) 02/11/22 19:16 RDW 12.4 % (12.1-15.1) 02/11/22 19:16 Plt Count 295 10^3/cmm (130-400) 02/11/22 19:16 MPV 9.7 fL (7.4-10.4) 02/11/22 19:16 Neut % (Auto) 82.3 % 02/11/22 19:16 Lymph % (Auto) 7.3 % 02/11/22 19:16 Mcpherson % (Auto) 9.3 % 02/11/22 19:16 Eos % (Auto) 0.2 % 02/11/22 19:16 Baso % (Auto) 0.5 % 02/11/22 19:16 Neut # (Auto) 11.31 10^3/uL (1.8-7.7) H 02/11/22 19:16 Lymph # (Auto) 1.0 10^3/uL (0.8-4.8) 02/11/22 19:16 Mcpherson # (Auto) 1.3 10^3/uL (0.2-0.9) H 02/11/22 19:16 Eos # (Auto) 0.0 10^3/uL (0.0-0.8) 02/11/22 19:16 Baso # (Auto) 0.1 10^3/uL (0.0-0.1) 02/11/22 19:16 Nucleated RBC % (auto) 0 % 02/11/22 19:16 Nucleated RBCs # 0.0 /100WBC 02/11/22 19:16 Specimen Type Arterial 02/11/22 21:40 Sample Site Radial, right 02/11/22 21:40 ABG pH 7.36 (7.35-7.45) 02/11/22 21:40 ABG pCO2 55.7 mmHg (35-45) H 02/11/22 21:40 ABG pO2 137.0 mmHg (80.0-100.0) H 02/11/22 21:40 ABG HCO3 31.1 mmol/L (22-26) H 02/11/22 21:40 ABG Base Excess 4.2 mmol/L (-2.0-2.0) H 02/11/22 21:40 Rodrigo Test Pos 02/11/22 21:40 Hematocrit 39.9 % (42-52) L 02/11/22 21:40 O2 Delivery Device Nc 02/11/22 21:40 O2 Liters/Min 4.0 % 02/11/22 21:40 Nursing Program Chair ID Droch 02/11/22 21:40 Sodium 135 mmol/L (136-145) L 02/11/22 19:16 Potassium 4.0 mmol/L (3.5-5.1) 02/11/22 19:16 Chloride 95 mmol/L (98-107) L 02/11/22 19:16 Carbon Dioxide 29 mmol/L (22-29) 02/11/22 19:16 Anion Gap 15.0 (5-19) 02/11/22 19:16 BUN 22 mg/dL (8-23) 02/11/22 19:16 Creatinine 1.0 mg/dL (0.7-1.2) 02/11/22 19:16 GFR Calculation Not Reportable 02/11/22 19:16 Glucose 107 mg/dL (65-115) 02/11/22 19:16 Calculated Osmolality 284 mOsm/kg (285-295) L 02/11/22 19:16 Calcium 9.8 mg/dL (8.5-10.5) 02/11/22 19:16 Total Bilirubin 0.8 mg/dL (0.15-1.2) 02/11/22 19:16 AST 21 U/L (0-40) 02/11/22 19:16 ALT 15 U/L (0-41) 02/11/22 19:16 Alkaline Phosphatase 113 U/L (40-130) 02/11/22 19:16 Troponin T Baseline 15 ng/L (0-15) 02/11/22 19:16 NT-Pro-B Natriuret Pep 652 pg/mL (0-125) H 02/11/22 19:16 Total Protein 7.0 g/dL (6.6-8.7) 02/11/22 19:16 Albumin 3.9 g/dL (3.5-5.2) 02/11/22 19:16 Globulin 3.1 g/dL (1.3-4.6) 02/11/22 19:16 Influenza Type A Ag negative (Negative) 02/11/22 19:28 Influenza Type B Ag negative (Negative) 02/11/22 19:28 SARS-CoV-2 Ag (Rapid) negative (Negative) 02/11/22 19:28 EKG Data EKG 1: I personally reviewed and interpreted this EKG as follows: EKG Interpretation Date: 02/11/22 EKG interpretation time: 19:18 Interpretation: sinus tach hr [address] or t wave abnormalities qrs 72 qtc 373 Critical Care Time Critical Care Time: Critical Care Time: Yes Total Critical Care Time: 40 Attestation: The high probability of a clinically significant, sudden or life threatening deterioration of the patient's resp system(s) required my full and direct attention, intervention and personal management. The critical care time is as s hown. This time is in addition to time spent performing any reported procedures but includes the following: [x] Data and vital sign review and interpretation [x] Patient assessment, examination and intervention [x] Documentation [x] Medication orders and management Discharge Plan Discharge Patient Disposition: Admitted As Inpatient Clinical Impression: Acute exacerbation of chronic obstructive airways disease, Acute respiratory failure with hypoxia Condition: Stable Prescriptions: No Action albuterol sulfate [ProAir HFA] 90 mcg/actuation HFA aerosol inhaler 2 puff inhalation QID PRN (Reason: shortness of breath or wheezing) 30 Days Qty: 6.7 5RF prednisone 20 mg tablet 60 mg PO DAILY 5 Days Qty: 15 0RF levofloxacin 750 mg tablet 750 mg PO DAILY 7 Days Qty: 7 0RF albuterol sulfate 2.5 mg /3 mL (0.083 %) solution for nebulization 2.5 mg INHALATION TID PRN (Reason: wheezing) Qty: 180 5RF polyethylene glycol 3350 [Miralax] 17 gram/dose powder 17 g PO DAILY Qty: 510 0RF Colace 100 mg capsule 100 mg PO BID Qty: 60 2RF Zofran 4 mg tablet 4 mg PO Q6H PRN (Reason: nausea and vomiting) Qty: 20 0RF magnesium citrate Solution 296 ml PO DAILY PRN (Reason: constipation) Qty: 296 0RF Referrals: Elinor Goldsmith FNP-C [Primary Care Provider] - Coding Level of Care Code ED Cloth Colors Examiner for Chg Fwd Exam Comprehensive
[2022-02-11 19:28] LABS: Basophils # 0.1 10^3/uL (0.0-0.1); Basophils % 0.5 %; Eosinophils % 0.2 %; Hematocrit 43.8 % (42.0-52.0); Hemoglobin 14.2 g/dL (11.7-16.6); Lymphocytes % 7.3 %; Mean Corpuscular HGB Conc 32.4 g/dL (30.0-36.0); Mean Corpuscular Hemoglobin 29.6 pg (28.0-34.0); Mean Corpuscular Volume 91.3 fl (80-94); Mean Platelet Volume 9.7 fL (7.4-10.4); Monocytes # 1.3 10^3/uL (0.2-0.9); Monocytes % 9.3 %; Neutrophils # 11.31 10^3/uL (1.8-7.7); Neutrophils % 82.3 %; Nucleated Red Blood Cells % 0 %; Platelet Count 295 10^3/cmm (130-400); Red Cell Distribution Width 12.4 % (12.1-15.1); White Blood Count 13.7 10^3/uL (4.0-10.0)
[2022-02-11 19:55] LABS: Troponin(5th) Baseline 15 ng/L (0-15)
[2022-02-11 19:57] LABS: Alanine Aminotransferase 15 U/L (0-41); Albumin Level 3.9 g/dL (3.5-5.2); Alkaline Phosphatase 113 U/L (40-130); Blood Urea Nitrogen 22 mg/dL (8-23); Calcium 9.8 mg/dL (8.5-10.5); Carbon Dioxide 29 mmol/L (22-29); Chloride 95 mmol/L (98-107); Globulin 3.1 g/dL (1.3-4.6); Glucose 107 mg/dL (65-115); NT Pro B Type Natriuretic Pept 652 pg/mL (0-125); Osmolality Calculated 284 mOsm/kg (285-295); Sodium 135 mmol/L (136-145); Total Bilirubin 0.8 mg/dL (0.15-1.2)
[2022-02-11 20:00] LABS: Aspartate Amino Transferase 21 U/L (0-40)
[2022-02-11 20:13] LABS: Influenza A by IFA negative (Negative); Influenza B by IFA negative (Negative); SARS Covid-2 Antigen negative (Negative)
[2022-02-11 20:54] VITALS: BP 142/84; RESP 20; O2SAT 100
--- NOTE | 2022-02-11 21:11 | ECG_ITS ---
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 Measurements Intervals [place] Rate: 90 P: 78 [place]: 132 QRS: 77 QRSD: 78 T: 71 QT: 349 QTc: 428 Interpretive Statements SINUS RHYTHM Compared to ECG 02/11/2022 19:18:25 Sinus tachycardia no longer present Ventricular premature complex(es) no longer present T-wave abnormality no longer present Electronically Signed On 02-12-2022 15:23:45 CARPENTER by Marlene Dickerson M.D. [id number]
[2022-02-11 21:48] LABS: ABG PCO2 55.7 mmHg (35-45); ABG PH Result 7.36 (7.35-7.45); Arterial Blood Gas Hematocrit 39.9 % (42-52); Base Excess ABG 4.2 mmol/L (-2.0-2.0); Blood Gas Allen Test Pos; Blood Gas Sample Site Radial, right; Blood Gas Sample Type Arterial; HCO3 ABG 31.1 mmol/L (22-26); Oxygen Device NC
--- NOTE | 2022-02-11 22:34 | PM.HP ---
Providers/Chief Complaint Admitting Physician: Cy Cannon MD Primary Care Provider: KYRA Siddiqui Chief Complaint: CP/ SOB History of Present Illness Emile Ray is a 72 year old male with a past medical history of COPD, recent history of quitting smoking, he had some sort of lung surgery on his right lung but is not exactly sure what the surgery was it was done in [facility], he has had some unintentional weight loss in the last year over 25 pounds down, who presents to [facility] due to increased shortness of breath, coughing, productive cough, fevers, chest pain. Patient tells me that for the last few days, he has felt increasingly short of breath, has had some chest pain with exertion, left-sided, he has had some cough, productive, yellow-green sputum. Subjective fevers, no calf pain, calf swelling, no hemoptysis, recent travel, recent surgery. Review of Systems Const: Denies: fever(s) Card: Reports: chest pain Resp: Reports: dyspnea GI: Denies: abdominal pain Medications/Allergies Home Medications Medication Instructions Recorded Confirmed Last Taken Type albuterol sulfate 90 mcg/actuation 2 puff inhalation QID PRN 07/30/20 02/11/22 11/04/20 Rx aerosol inhaler (ProAir HFA) shortness of breath or wheezing 30 days #6.7 grams ondansetron HCl 4 mg tablet 4 mg PO Q6H PRN nausea and 11/04/20 02/11/22 Unknown Rx (Zofran) vomiting #20 tabs magnesium citrate 296 ml PO DAILY PRN constipation 08/08/21 02/11/22 Unknown Rx #296 mL polyethylene glycol 3350 17 17 g PO DAILY #510 grams 12/21/21 02/11/22 Unknown Rx gram/dose oral powder (Miralax) docusate sodium 100 mg capsule 100 mg PO BID #60 caps 12/30/21 02/11/22 Unknown Rx (Colace) albuterol sulfate 2.5 mg/3 mL 2.5 mg (3 mL) inhalation TID PRN 02/11/22 02/11/22 Unknown Rx (0.083 %) solution for nebulization wheezing #180 mL levofloxacin 750 mg tablet 750 mg PO DAILY 7 days #7 tabs 02/11/22 02/11/22 Unknown Rx prednisone 20 mg tablet 60 mg PO DAILY 5 days #15 tabs 02/11/22 02/11/22 Unknown Rx Allergies Allergy/AdvReac Type Severity Reaction Status Date / Time No Known Allergies Allergy Verified 02/11/22 15:02 PFSH Acute PFSH: Medical History COPD (chronic obstructive pulmonary disease) Unintended weight loss Surgical History H/O excision of mass (11/04/20) left ring finger History of lung surgery Right lung 2010 Family History Denies family history of Diabetes Cancer Hypertension Social History Smoking and tobacco status: former smoker Second hand smoke exposure: No Smoking risk assessment/counseling performed?: No Alcohol intake: never Desire information about alcohol rehabilitation?: No Counseling given: No Desire information about substance/drug rehabilitation?: No Counseling given: No Adopted: No Caregiver/support person: No Lives independently: Yes Household members: family Marital status: Single Number of children: 0 service: No Current occupational status: unemployed History of recent travel: No Current gender identity: Male Vitals/I&O/Wt Last Vital Signs Pulse 105 H 02/11/22 19:06 Resp 20 H 02/11/22 20:54 BP 142/84 02/11/22 20:54 Pulse Ox 100 02/11/22 20:54 O2 Del Method 02/11/22 20:54 O2 Flow Rate 4 02/11/22 20:54 Weight last 48 hrs Weight 54.431 kg Physical Exam Const: COMMON NORMALS: no acute distress and patient oriented x3 Resp: COMMON NORMALS: normal respiratory effort, No retractions and No use of accessory muscles AUSCULTATION: crackles and wheezes Cardio: COMMON NORMALS: no JVD, regular rate, regular rhythm, S1 normal heart sound present and S2 normal heart sound present RATE: regular rate RHYTHM: regular rhythm HEART SOUNDS: S1 normal heart sound present and S2 normal heart sound present GI: COMMON NORMALS: Normal to inspection, nondistended, normoactive bowel sounds present, Soft to palpation, non-tender and No hepatosplenomegaly present Extremity: COMMON NORMALS: no pedal edema Neuro: COMMON NORMALS: patient oriented x3 Psych: COMMON NORMALS: mental status grossly normal Data 02/11/22 19:16 02/11/22 19:16 A&P Assessment and plan (1) Acute exacerbation of chronic obstructive airways disease: (2) Acute respiratory failure with hypoxia: (3) Unintended weight loss: (4) Lung nodule: (5) COPD (chronic obstructive pulmonary disease): Qualifiers: COPD type: unspecified COPD Qualified Code(s): J44.9 - Chronic obstructive pulmonary disease, unspecified Plan COPD exacerbation -Monitor respiratory status closely -Admit to general medical floors -Continue Solu-Medrol -DuoNebs -Budesonide -Rocephin and azithromycin -Monitor sputum cultures -CT angiogram of the chest -Full code -Lovenox for DVT prophylaxis Attestations Medical Necessity Statement*: Patient requires hospitalization, inpatient, greater than 2 midnights, for COPD exacerbation Coding Level of Care Code Acute Food Processor for Pardeep Pozo Diagnoses Acute exacerbation of chronic obstructive airways disease J44.1 Acute respiratory failure with hypoxia J96.01 Unintended weight loss R63.4 Lung nodule R91.1 COPD (chronic obstructive pulmonary disease) J44.9 COPD type: unspecified COPD
[2022-02-11 22:47] VITALS: BP 153/96; PULSE 85; RESP 16; O2SAT 100
--- NOTE | 2022-02-11 23:01 | CTR_ITS ---
PROCEDURE INFORMATION: Exam: CTA Chest With Contrast Exam date and time: 02/12/2022 5:36 AM Age: 72 years old Clinical indication: Shortness of breath; Additional info: SOB TECHNIQUE: Imaging protocol: Computed tomographic angiography of the chest with contrast. 3D rendering (Not supervised by radiologist): MIP and/or 3D reconstructed images were created by the technologist. Radiation optimization: All CT scans at this facility use at least one of these dose optimization techniques: automated exposure control; mA and/or kV adjustment per patient size (includes targeted exams where dose is matched to clinical indication); or iterative reconstruction. Contrast material: OMNI 350; Contrast volume: 85 ml; Contrast route: INTRAVENOUS (IV); COMPARISON: CR XR chest 1V portable [id number] 02/11/2022 7:18 PM RADIATION DOSE METRICS: Total DLP (mGy-cm): 211.18 FINDINGS: Pulmonary arteries: Central pulmonary emboli identified. Small peripheral pulmonary embolus in the segmental branch of the lateral basal segment of the right lower lobe (axial series 6, image 392; coronal series 10, image 79). Aorta: The aorta is normal in course and caliber. Lungs: Significant emphysematous disease. Bilateral pulmonary scarring noted. A 1.4 x 1.2 x 1.1 cm solid mass with low-attenuation internal density likely fat may be consistent with pulmonary hamartoma, present on prior exam. A few patchy peripheral ground-glass opacities in the lungs noted which may be consistent with mild pneumonia. Pleural spaces: No pneumothorax. No pleural effusion. Heart: No signs of right heart strain. Heart RV/LV ratio of 0.86. Lymph nodes: The visualized supraclavicular region appears normal. No mediastinal or hilar adenopathy is identified. Bones/joints: Unremarkable. Soft tissues: Unremarkable. CT/CT angio chest PE protcl [id number] IMPRESSION: 1. A few patchy peripheral ground-glass opacities in the lungs noted which may be consistent with mild pneumonia. 2. Small peripheral pulmonary embolus in the segmental branch of the lateral basal segment of the right lower lobe. No signs of right heart strain. 3. Emphysematous disease. 4. 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
[2022-02-11 23:03] VITALS: BP 137/84; PULSE 87; RESP 18; TEMP 37.1; O2SAT 98
[2022-02-11 23:13] LABS: Troponin 5 2HR 14.98 ng/L (0-15)
[2022-02-11] MEDS: pantoprazole 40 mg SDV IVP (23:41)
[2022-02-11 23:42] LABS: Troponin 5 2HR Delta -0.02 ABS# (0-10)
[2022-02-11] MEDS: cefTRIAXone 1,000 MG in sodium chloride 0.9% (plus) 50 ML 100 MG IV (23:43)
[2022-02-11] MEDS: enoxaparin 40 mg/0.4 mL Syringe SUBCUT (23:46)
[2022-02-12] VITALS (15 sets, daily range): BP systolic 115–138; BP diastolic 66–83; PULSE 72–83; RESP 14–20; TEMP 36.3–36.7; O2SAT 90–100
[2022-02-12] MEDS: azithromycin 500 MG in sodium chloride 0.9% 250 ML 250 MG IV ×2 (00:32→23:33)
[2022-02-12 01:16] LABS: D Dimer 1.98 ug/mIFEU (0-0.59)
[2022-02-12 01:25] LABS: Thyroid Stimulating Hormone 0.41 uIU/mL (0.27-4.20)
--- NOTE | 2022-02-12 02:57 | ECG_ITS ---
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 Measurements Intervals [place] Rate: 89 P: 84 MD: 138 QRS: 75 QRSD: 79 T: 69 QT: 357 QTc: 434 Interpretive Statements SINUS RHYTHM Compared to ECG 02/11/2022 21:11:56 No significant changes Electronically Signed On 02-12-2022 15:26:16 SHIFT MECHANIC by Marlene Dickerson M.D. [id number]
[2022-02-12 03:05] LABS: Estmated Average Glucose 91; Hemoglobin A1C 4.8 % (4.0-6.0)
[2022-02-12] MEDS: ipratropium-albuterol 3 mL Neb INHALATION ×2 (04:07→08:13)
[2022-02-12] MEDS: iohexol 350 mg/mL 500 mL Btl (per mL) IV (05:19)
[2022-02-12 05:50] LABS: Troponin 5 6HR 12.98 ng/L (0-15)
[2022-02-12 06:08] LABS: Troponin 5 6HR Delta -2.02 ng/L (0-12)
--- NOTE | 2022-02-12 06:46 | USCV_ITS ---
Emile Ray Age: 72 Gender: M : 1950 Exam Date: 02/12/2022 14:04 Ordering Phys: Cy Cannon MD Technologist: SONAM Exam Location: [facility] [place] Indication: SOB BP: 138 / 77 HR: 69 Rhythm: Sinus Technical Quality: Technically difficult study MEASUREMENTS (Male / Female) Normal Values 2D ECHO LV Diastolic Diameter PLAX 4.5 cm 4.2 - 5.9 / 3.9 - 5.3 cm LV Systolic Diameter PLAX 3.0 cm IVS Diastolic Thickness 0.9 cm 0.6 - 1.0 / 0.6 - 0.9 cm IVS Systolic Thickness 1.3 cm LVPW Diastolic Thickness 0.9 cm 0.6 - 1.0 / 0.6 - 0.9 cm LVPW Systolic Thickness 1.3 cm LVOT Diameter 1.8 cm LV Ejection Fraction 2D Teich 60.5 % LA Diameter 2.1 cm IVC Diameter 2.1 cm M-MODE Aortic Annulus Diameter 2.3 cm LA Ao Ratio MM 0.7 MV E Point Septal Separation 0.5 cm DOPPLER AV Peak Velocity 99.0 cm/s LVOT Peak Velocity 87.0 cm/s AV Area Cont Eq vti 2.2 cm squared AV Area Cont Eq pk 2.2 cm squared MV Area PHT 5.0 cm squared Mitral E to A Ratio 0.9 MV E' Velocity 60.0 cm/s TR Peak Velocity 162.0 cm/s TR Peak Gradient 10.5 mmHg Right Atrial Pressure 3.0 mmHg Pulmonary Artery Systolic Pressu 13.5 mmHg FINDINGS Left Ventricle Normal left ventricular size and systolic function, EF 60.5% No gross wall motion normalities. Technically very difficult study because of the poor ultrasonic window. Only the parasternal and subcostal views are interpretable . Right Ventricle Possibly normal size ejection fraction Right Atrium Possibly of normal size Left Atrium Possibly of normal size Mitral Valve No gross abnormalities noted Aortic Valve No gross abnormalities noted Tricuspid Valve No gross abnormalities noted Pulmonic Valve Pulmonic valve not well visualized. Pericardium No pericardial effusion. Aorta Normal aortic annulus size. IVC Inferior vena cava not visualized. CONCLUSIONS Normal left ventricular size and systolic function, EF 60.5% No gross wall motion normalities. Possibly normal cardiac chamber sizes. No significant valvular abnormalities were noted. Technically very difficult study because of the poor ultrasonic window. Only the parasternal and subcostal views are interpretable . Dr Marlene Dickerson MD FACC (Electronically Signed) Final Date: 12 February 2022 15:08 S
[2022-02-12] MEDS: budesonide 0.5 mg/2 mL Neb INHALATION ×2 (08:12→21:54)
[2022-02-12] MEDS: polyethylene glycol 3350 Pkt 17 gm PO (09:17)
[2022-02-12] MEDS: docusate sodium 100 mg Capsule PO ×2 (09:17→17:55)
[2022-02-12 09:20] LABS: Basophils % 0.1 %; Hematocrit 45.2 % (42.0-52.0); Hemoglobin 14.3 g/dL (11.7-16.6); Lymphocytes # 0.6 10^3/uL (0.8-4.8); Lymphocytes % 7.7 %; Mean Corpuscular HGB Conc 31.6 g/dL (30.0-36.0); Mean Corpuscular Hemoglobin 29.4 pg (28.0-34.0); Mean Corpuscular Volume 92.8 fl (80-94); Mean Platelet Volume 9.5 fL (7.4-10.4); Monocytes # 0.3 10^3/uL (0.2-0.9); Monocytes % 3.4 %; Neutrophils % 88.3 %; Nucleated Red Blood Cells % 0 %; Platelet Count 279 10^3/cmm (130-400); Red Blood Count 4.87 10^6/uL (4.1-5.3); Red Cell Distribution Width 12.5 % (12.1-15.1); White Blood Count 8.2 10^3/uL (4.0-10.0)
[2022-02-12] MEDS: heparin drip 25,000 UNIT/500 ML PREMIX 17.42 UNIT IV (11:26)
[2022-02-12] MEDS: heparin 5,000 unit/mL INJ 1 mL IV (11:29)
--- NOTE | 2022-02-12 13:18 | PM.PN ---
Subjective Subjective: Overnight. H&P and labs appreciated. On examination sitting up at bedside. Denies any nausea, vomiting, headache. On 2 L oxygen supplementation saturating 90%. States he is feeling at his baseline as per breathing. Denies any chest pain. Vitals/I&O/Wt Last Vital Signs Temp 97.6 F 02/12/22 08:00 Pulse 81 02/12/22 08:13 Resp 16 02/12/22 08:13 BP 135/83 02/12/22 08:00 Pulse Ox 90 02/12/22 08:13 O2 Del Method 02/12/22 08:13 O2 Flow Rate 2 02/12/22 08:13 02/11/22 02/12/22 02/12/22 22:59 06:59 14:59 Intake Total 300 / 300 120 / 120 Balance 300 / 300 120 / 120 Weight last 48 hrs Weight 54.431 kg Physical Exam Const: COMMON NORMALS: no acute distress and patient oriented x3 Neck/C-Spine: COMMON NORMALS: no JVD Resp: COMMON NORMALS: normal respiratory effort, No retractions and No use of accessory muscles AUSCULTATION: crackles and wheezes Cardio: COMMON NORMALS: no JVD, regular rate, regular rhythm, S1 normal heart sound present and S2 normal heart sound present RATE: regular rate RHYTHM: regular rhythm HEART SOUNDS: S1 normal heart sound present and S2 normal heart sound present GI: COMMON NORMALS: Normal to inspection, nondistended, normoactive bowel sounds present, Soft to palpation, non-tender and No hepatosplenomegaly present PALPATION: Yes Soft to palpation and Yes No hepatosplenomegaly present Extremity: COMMON NORMALS: no pedal edema Neuro: COMMON NORMALS: patient oriented x3 Psych: COMMON NORMALS: mental status grossly normal Data 02/12/22 09:09 02/11/22 19:16 A&P Assessment and plan (1) Acute respiratory failure with hypoxia: Secondary to combination of COPD exacerbation and pulmonary embolism. Bacterial pneumonia less likely currently. Appreciate CT results. (2) Pulmonary embolism: Switch from heparin drip to Eliquis 10 mg twice daily for next 7 days followed by 5 mg twice daily. Check echocardiogram (3) Acute exacerbation of chronic obstructive airways disease: Wean down Solu-Medrol 40 mg every 12 hourly Continue with DuoNebs every 6 hour, budesonide twice daily (4) Unintended weight loss: (5) Lung nodule: (6) COPD (chronic obstructive pulmonary disease): Qualifiers: COPD type: unspecified COPD Qualified Code(s): J44.9 - Chronic obstructive pulmonary disease, unspecified Plan Protonix for PUD prophylaxis Cardiac diet. Full dose Eliquis will provide with DVT PPx Attestations Medical Necessity Statement*: Requires further hospitalization for hypoxia secondary to pulmonary embolism and COPD exacerbation Time Spent in Patient Care: Greater than 35 minutes Coding Level of Care Code Acute Cad Cam Programmer for [facility] Diagnoses Acute respiratory failure with hypoxia J96.01 Pulmonary embolism I26.99 Acute exacerbation of chronic obstructive airways disease J44.1 Unintended weight loss R63.4 Lung nodule R91.1 COPD (chronic obstructive pulmonary disease) J44.9 COPD type: unspecified COPD
[2022-02-12] MEDS: FUROsemide 20 mg Tablet PO (14:06)
[2022-02-12 15:28] LABS: Magnesium 2.2 mg/dL (1.7-2.3)
[2022-02-12] MEDS: ipratropium 0.5 mg/2.5 mL Neb INHALATION ×2 (15:55→23:53)
[2022-02-12] MEDS: albuterol 2.5 mg/3 mL Neb 3 MG INHALATION ×2 (15:55→23:54)
[2022-02-12] MEDS: apixaban 5 mg Tablet 10 MG PO (17:55)
[2022-02-12] MEDS: pantoprazole 40 mg SDV IVP (20:50)
[2022-02-12] MEDS: cefTRIAXone 1,000 MG in sodium chloride 0.9% (plus) 50 ML 100 MG IV (23:33)
[2022-02-13] VITALS (10 sets, daily range): BP systolic 104–131; BP diastolic 59–63; PULSE 73–92; RESP 12–16; TEMP 36.4–36.5; O2SAT 85–100
[2022-02-13 06:22] LABS: Alanine Aminotransferase 15 U/L (0-41); Albumin Level 3.1 g/dL (3.5-5.2); Alkaline Phosphatase 80 U/L (40-130); Aspartate Amino Transferase 16 U/L (0-40); Blood Urea Nitrogen 33 mg/dL (8-23); Calcium 8.9 mg/dL (8.5-10.5); Carbon Dioxide 29 mmol/L (22-29); Globulin 2.8 g/dL (1.3-4.6); Glucose 145 mg/dL (65-115); Total Bilirubin 0.2 mg/dL (0.15-1.2); Total Protein 5.9 g/dL (6.6-8.7)
[2022-02-13 06:40] LABS: Anion Gap 10.3 (5-19); Chloride 102 mmol/L (98-107); Osmolality Calculated 294 mOsm/kg (285-295); Potassium 4.3 mmol/L (3.5-5.1); Sodium 137 mmol/L (136-145)
[2022-02-13] MEDS: ipratropium 0.5 mg/2.5 mL Neb INHALATION ×2 (07:52→11:34)
[2022-02-13] MEDS: albuterol 2.5 mg/3 mL Neb 3 MG INHALATION (07:53)
[2022-02-13] MEDS: budesonide 0.5 mg/2 mL Neb INHALATION (07:53)
[2022-02-13] MEDS: docusate sodium 100 mg Capsule PO (08:24)
[2022-02-13] MEDS: apixaban 5 mg Tablet 10 MG PO (08:24)
[2022-02-13] MEDS: polyethylene glycol 3350 Pkt 17 gm PO (08:24)
--- NOTE | 2022-02-13 09:57 | P.DS_ITS ---
Discharge Providers Date of Admission: 02/11/22 22:14 Date of Discharge: February 13, 2022 Attending Provider at Admission: Cy Cannon MD Attending Provider at Discharge: Yobani Becker MD Primary Care Provider: KYRA Siddiqui Diagnoses at Discharge Discharge Diagnosis (1) Acute respiratory failure with hypoxia: Status: Acute (2) Pulmonary embolism: Status: Acute (3) Acute exacerbation of chronic obstructive airways disease: Status: Acute (4) Unintended weight loss: Status: Acute (5) Lung nodule: Status: Acute (6) COPD (chronic obstructive pulmonary disease): Status: Chronic Qualifiers: COPD type: unspecified COPD Qualified Code(s): J44.9 - Chronic obstru ctive pulmonary disease, unspecified Reason for Visit Reason for Visit: CP/ SOB Hospital Course Hospital Course Emile Ray is a 72 year old male with a past medical history of COPD, recent history of quitting smoking, he had some sort of lung surgery on his right lung but is not exactly sure what the surgery was it was done in [facility], he has had some unintentional weight loss in the last year over 25 pounds down, who presents to [facility] due to increased shortness of breath, coughing, productive cough, fevers, chest pain.? Patient tells me that for the last few days, he has felt increasingly short of breath, has had some ch est pain with exertion, left-sided, he has had some cough, productive, yellow- green sputum.? Subjective fevers, no calf pain, calf swelling, no hemoptysis, recent travel, recent surgery. Patient was admitted to hospital further evaluation and management of hypoxia. CTA was done which was consistent with bilateral pulmonary embolism without right heart strain which is confirmed with echocardiogram. Hypoxia was also concerning secondary to COPD exacerbation. He was started on nebulization treatment along with heparin drip for pulmonary embolism which was later transitioned to oral anticoagulation. His hospital stay was otherwise unremarkable. He is been discharged in hemodynamically stable condition with advised to follow-up with a primary care provider within next 1 week. He is to take Eliquis 10 mg twice daily for next 1 week followed by 5 mg twice daily going forward. Home O2 evaluation has been done prior to discharge. Physical Exam Const: COMMON NORMALS: no acute distress and patient oriented x3 Neck/C-Spine: COMMON NORMALS: no JVD Resp: COMMON NORMALS: normal respiratory effort, No retractions and No use of accessory muscles AUSCULTATION: crackles and wheezes Cardio: COMMON NORMALS: no JVD, regular rate, regular rhythm, S1 normal heart sound present and S2 normal heart sound present RATE: regular rate RHYTHM: regular rhythm HEART SOUNDS: S1 normal heart sound present and S2 normal heart sound present GI: COMMON NORMALS: Normal to inspection, nondistended, normoactive bowel sounds present, Soft to palpation, non-tender and No hepatosplenomegaly present PALPATION: Yes Soft to palpation and Yes No hepatosplenomegaly present Extremity: COMMON NORMALS: no pedal edema Neuro: COMMON NORMALS: patient oriented x3 Psych: COMMON NORMALS: mental status grossly normal Discharge Data Studies Completed and Pending Completed Studies During Hospitalization Category Date Time Status CT angio chest PE protcl [id number] Routine Cat Scan 02/11/22 23:01 Completed XR chest 1V portable [id number] Stat Exams 02/11/22 19:11 Completed CV. echo complete* [id number] Routine Ultrasound 02/12/22 06:46 Completed Pending at discharge Category Date Time Status Blood Culture Stat Lab 02/11/22 22:42 Ordered Sputum Culture and Gram Stain Stat Lab 02/12/22 17:26 Results Radiology Impressions Chest X-Ray 02/11/22 19:11 IMPRESSION: 1. No acute findings. 2. Emphysema 3. Chronic bilateral upper lobe postop changes Chest CTA 02/11/22 23:01 IMPRESSION: 1. A few patchy peripheral ground-glass opacities in the lungs noted which may be consistent with mild pneumonia. 2. Small peripheral pulmonary embolus in the segmental branch of the lateral basal segment of the right lower lobe. No signs of right heart strain. 3. Emphysematous disease. 4. 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 ADDENDUM: 02/12/22 0714 THIS REPORT CONTAINS FINDINGS THAT MAY BE CRITICAL TO PATIENT CARE. The findings were verbally communicated via telephone conference with ALYSSA Burnette at 7:11 AM TRAINING PERSONNEL SUPERVISOR on 02/12/2022. The findings were acknowledged and understood. Echocardiogram CONCLUSIONS ?Normal left ventricular size and systolic function, EF 60.5% ?No gross wall motion normalities. ?Possibly normal cardiac chamber sizes. ?No significant valvular abnormalities were noted. ?Technically very difficult study because of the poor ultrasonic ?window.? Only the parasternal and subcostal views are ?interpretable . ?Dr Marlene Dickerson MD [facility] ?(Electronically Signed) ?Final Date:? ? ? 12 February 2022 ? 15:08 Laboratory Results WBC 8.2 10^3/uL (4.0-10.0) 02/12/22 09:09 RBC 4.87 10^6/uL (4.1-5.3) 02/12/22 09:09 Hgb 14.3 g/dL (11.7-16.6) 02/12/22 09:09 Hct 45.2 % (42.0-52.0) 02/12/22 09:09 MCV 92.8 fl (80-94) 02/12/22 09:09 MCH 29.4 pg (28.0-34.0) 02/12/22 09:09 MCHC 31.6 g/dL (30.0-36.0) 02/12/22 09:09 RDW 12.5 % (12.1-15.1) 02/12/22 09:09 Plt Count 279 10^3/cmm (130-400) 02/12/22 09:09 MPV 9.5 fL (7.4-10.4) 02/12/22 09:09 Neut % (Auto) 88.3 % 02/12/22 09:09 Lymph % (Auto) 7.7 % 02/12/22 09:09 [place] % (Auto) 3.4 % 02/12/22 09:09 Eos % (Auto) 0.0 % 02/12/22 09:09 Baso % (Auto) 0.1 % 02/12/22 09:09 Neut # (Auto) 7.20 10^3/uL (1.8-7.7) 02/12/22 09:09 Lymph # (Auto) 0.6 10^3/uL (0.8-4.8) L 02/12/22 09:09 [place] # (Auto) 0.3 10^3/uL (0.2-0.9) 02/12/22 09:09 Eos # (Auto) 0.0 10^3/uL (0.0-0.8) 02/12/22 09:09 Baso # (Auto) 0.0 10^3/uL (0.0-0.1) 02/12/22 09:09 Nucleated RBC % (auto) 0 % 02/12/22 09:09 Nucleated RBCs # 0.0 /100WBC 02/12/22 09:09 APTT 31.0 SECONDS (23.9-36.7) 02/12/22 09:09 D-Dimer 1.98 ug/mIFEU (0-0.59) H 02/11/22 19:16 Specimen Type Arterial 02/11/22 21:40 Sample Site Radial, right 02/11/22 21:40 ABG pH 7.36 (7.35-7.45) 02/11/22 21:40 ABG pCO2 55.7 mmHg (35-45) H 02/11/22 21:40 ABG pO2 137.0 mmHg (80.0-100.0) H 02/11/22 21:40 ABG HCO3 31.1 mmol/L (22-26) H 02/11/22 21:40 ABG Base Excess 4.2 mmol/L (-2.0-2.0) H 02/11/22 21:40 Rodrigo Test Pos 02/11/22 21:40 Hematocrit 39.9 % (42-52) L 02/11/22 21:40 O2 Delivery Device Nc 02/11/22 21:40 O2 Liters/Min 4.0 % 02/11/22 21:40 Saxophone Assembler ID Droch 02/11/22 21:40 Sodium 137 mmol/L (136-145) 02/13/22 05:00 Potassium 4.3 mmol/L (3.5-5.1) 02/13/22 05:00 Chloride 102 mmol/L (98-107) 02/13/22 05:00 Carbon Dioxide 29 mmol/L (22-29) 02/13/22 05:00 Anion Gap 10.3 (5-19) 02/13/22 05:00 BUN 33 mg/dL (8-23) H 02/13/22 05:00 Creatinine 0.9 mg/dL (0.7-1.2) 02/13/22 05:00 GFR Calculation Not Reportable 02/13/22 05:00 Glucose 145 mg/dL (65-115) H 02/13/22 05:00 Estimat Average Glucose 91 02/11/22 19:16 Hemoglobin A1c 4.8 % (4.0-6.0) 02/11/22 19:16 Calculated Osmolality 294 mOsm/kg (285-295) 02/13/22 05:00 Calcium 8.9 mg/dL (8.5-10.5) 02/13/22 05:00 Phosphorus 2.0 mg/dL (2.5-4.5) L 02/12/22 14:54 Magnesium 2.2 mg/dL (1.7-2.3) 02/12/22 14:54 Total Bilirubin 0.2 mg/dL (0.15-1.2) 02/13/22 05:00 AST 16 U/L (0-40) 02/13/22 05:00 ALT 15 U/L (0-41) 02/13/22 05:00 Alkaline Phosphatase 80 U/L (40-130) 02/13/22 05:00 Troponin T Baseline 15 ng/L (0-15) 02/11/22 19:16 Troponin T 120 Minute 14.98 ng/L (0-15) 02/11/22 22:30 Delta Troponin T -0.02 ABS# (0-10) L 02/11/22 22:30 Troponin T Hi Sens 6Hr 12.98 ng/L (0-15) 02/12/22 01:20 Troponin T Hi Sens 6Hr Delta -2.02 ng/L (0-12) L 02/12/22 01:20 NT-Pro-B Natriuret Pep 652 pg/mL (0-125) H 02/11/22 19:16 Total Protein 5.9 g/dL (6.6-8.7) L 02/13/22 05:00 Albumin 3.1 g/dL (3.5-5.2) L 02/13/22 05:00 Globulin 2.8 g/dL (1.3-4.6) 02/13/22 05:00 TSH 0.41 uIU/mL (0.27-4.20) 02/11/22 22:30 Influenza Type A Ag negative (Negative) 02/11/22 19:28 Influenza Type B Ag negative (Negative) 02/11/22 19:28 SARS-CoV-2 Ag (Rapid) negative (Negative) 02/11/22 19:28 Vitals Last Vital Signs Temp 97.5 F L 02/13/22 08:00 Pulse 79 02/13/22 08:00 Resp 16 02/13/22 08:00 BP 131/62 02/13/22 08:00 Pulse Ox 92 02/13/22 08:00 O2 Del Method 02/13/22 07:55 O2 Flow Rate 2 02/13/22 00:01 Discharge Plan Discharge Patient Disposition: Home Condition: Stable Prescriptions: New ipratropium-albuterol 0.5 mg-3 mg(2.5 mg base)/3 mL solution for nebulization 3 ml inhalation Q8H PRN (Reason: shortness of breath) Qty: 90 0RF Advair Diskus 100-50 mcg/dose blister with device 1 inh inhalation BID Qty: 60 0RF Eliquis DVT-PE Treat 30D Start 5 mg (74 tabs) tablets,dose pack See Rx Instructions .ROUTE .COMPLEX Qty: 74 0RF Rx Instructions: orally per package directions prednisone 10 mg tablet See Rx Instructions .ROUTE .COMPLEX Qty: 42 0RF Rx Instructions: prednisone 5 mg: take 8 tablets (40 mg) on Day 1; 7 tablets (35 mg) on Day 2; then decrease by 1 tablet every day until finished Augmentin 500-125 mg tablet 1 tab PO BID Qty: 10 0RF levofloxacin 500 mg tablet 500 mg PO Q24H 5 Days Qty: 5 0RF Continued albuterol sulfate [ProAir HFA] 90 mcg/actuation HFA aerosol inhaler 2 puff inhalation QID PRN (Reason: shortness of breath or wheezing) 30 Days Qty: 6.7 5RF albuterol sulfate 2.5 mg /3 mL (0.083 %) solution for nebulization 2.5 mg INHALATION TID PRN (Reason: wheezing) Qty: 180 5RF Label Comments: Hasn't taken for several months Discharge Orders: Discharge Order (Routine); Ordered 02/13/22 Ordered By: Yobani Becker Other Ambulatory Orders: DME: Oxygen (Order) Location: None Selected Ordered By: Yobani Becker Referrals: Elinor Goldsmith FNP-C [Primary Care Provider] - 2 weeks (Please call MondayFeb.14 to schedule a hospital follow up appointment. ) Discharge Diet: Regular Discharge Activity: Resume usual activity and Increase activity as tolerated Patient Instructions: Prednisone (By mouth), Amoxicillin/Clavulanate Potassium (By mouth), Levofloxacin (By mouth), Ipratropium/Albuterol (By breathing), Fluticasone/Salmeterol (By breathing), Apixaban (By mouth), COPD (Chronic Obstructive Pulmonary Disease) (GEN), Bed Bugs (GEN), Opioid Safety Activity Restrictions/Additional Instructions: Follow-up with a primary care provider within next 1 week. DuoNebs of the nebulization treatment which she should do every 8 hours as needed for shortness of breath. Take Eliquis 10 mg 2 times daily for next 1 week followed by 5 mg twice daily. Eliquis is a blood thinner. Discharge Attestations Time Spent in Discharge Care*: greater than 30 min Specific Discharge Activities: educating patient, discussing with supportive employment case manager/social workers/dc planners, documenting/other paperwork and evaluating patient/reviewing data Status at Discharge: Cognitive status at discharge: cognitively intact , Behavioral status at discharge: cooperative , Functional status at discharge: independent ambulation , Overall status at discharge: patient is back to baseline Quality Metrics Clinical Quality Measures [ No reported AMI, CVA or VTE this stay] Coding Level of Care Code Acute Chg FW DC note Exam Detailed Diagnoses Acute respiratory failure with hypoxia J96.01 Pulmonary embolism I26.99 Acute exacerbation of chronic obstructive airways disease J44.1 Unintended weight loss R63.4 Lung nodule R91.1 COPD (chronic obstructive pulmonary disease) J44.9 COPD type: unspecified COPD
[2022-02-13] MEDS: albuterol 2.5 mg/3 mL Neb INHALATION (11:34)
--- NOTE | 2022-02-13 17:59 | PC.NURSE ---
Discussed discharge with patient, follow up appointments, new medications and instructions. verbalized understanding
== END 2022-02-13 15:10 | disposition home or self-care (01) | DRG 175 ==
LOC: ER 21:58 → MEDSURG 22:15
PROVIDERS: Admitting Provider Family Medicine; Emergency Provider Emergency Medicine; PCP Nurse Practitioner Family; Visit Provider Student in an Organized Health Care Education/Training Program
DX: I26.99 Other pulmonary embolism without acute cor pulmonale (principal); J96.01 Acute respiratory failure with hypoxia; J44.1 Chronic obstructive pulmonary disease with (acute) exacerbation; Z68.1 Body mass index [BMI] 19.9 or less, adult; F17.201 Nicotine dependence, unspecified, in remission; R63.4 Abnormal weight loss; R91.1 Solitary pulmonary nodule; Z98.890 Other specified postprocedural states
CPT/HCPCS: 36415; 36600; 71045; 71275; 80053; 82803; 83036; 83735; 83880; 84100; 84443; 84484; 85025; 85378; 85730; 87040; 87070; 87205; 87426; 87804; 93005; 93306; 94640; 94760; 96372; 96374; 99285; C9113; J0456; J0696; J1644; J1650; J2920; J2930; J7050; J7613; J7626; J7644; Q9967

== ENCOUNTER 2022-02-24 12:00 | Outpatient (CLI) | payer MEDICAID, SELFPAY ==
--- NOTE | 2022-02-24 | CTR_ITS ---
PROCEDURE INFORMATION: Exam: CT Chest With Contrast; Diagnostic Exam date and time: 02/24/2022 1:34 PM Age: 72 years old Clinical indication: Condition or disease; Lung condition and disease and other: Abn weight loss; Pulmonary nodule, solitary; Additional info: Solitary pulm nodule/ abn weight loss TECHNIQUE: Imaging protocol: Diagnostic computed tomography of the chest with contrast. Radiation optimization: All CT scans at this facility use at least one of these dose optimization techniques: automated exposure control; mA and/or kV adjustment per patient size (includes targeted exams where dose is matched to clinical indication); or iterative reconstruction. Contrast material: OMNI 350; Contrast volume: 95 ml; Contrast route: INTRAVENOUS (IV); COMPARISON: CT angio chest PE protcl [id number] 02/12/2022 5:36 AM RADIATION DOSE METRICS: Total DLP (mGy-cm): 624.24 FINDINGS: Lungs: Severe centrilobular emphysema. Moderate paraseptal emphysema. Grossly stable 1.2 cm left lower lobe pulmonary nodule measuring -74 Hounsfield units most consistent with fatty hamartoma. No followup needed. Pleural spaces: Right pleural calcification which could be secondary to previous empyema or hemothorax. Heart: Mild pericardial fluid and/or thickening. Lymph nodes: Calcified left hilar nodes and/or mediastinal nodes and/or lung granulomas consistent with old granulomatous disease. Vasculature: Unremarkable. No aortic aneurysm. Bones/joints: Unremarkable. No acute fracture. Soft tissues: Unremarkable. COMMENTS: In the absence of a history or active diagnosis of lung cancer, it is recommended that this patient with emphysema be evaluated for enrollment in a low dose CT lung cancer screening program. PROCEDURE INFORMATION: Exam: CT Abdomen And Pelvis With Contrast Exam date and time: 02/24/2022 1:34 PM Age: 72 years old Clinical indication: Condition or disease; Lung condition and disease and other: Abn weight loss; Pulmonary nodule, solitary; Additional info: Solitary pulm nodule/ abn weight loss TECHNIQUE: Imaging protocol: Computed tomography of the abdomen and pelvis with contrast. Radiation optimization: All CT scans at this facility use at least one of these dose optimization techniques: automated exposure control; mA and/or kV adjustment per patient size (includes targeted exams where dose is matched to clinical indication); or iterative reconstruction. Contrast material: OMNI 350; Contrast volume: 95 ml; Contrast route: INTRAVENOUS (IV); COMPARISON: CT abdomen pelvis wo con [id number] 08/07/2021 11:09 PM RADIATION DOSE METRICS: Total DLP (mGy-cm): 624.24 FINDINGS: Liver: Normal. No mass. Gallbladder and bile ducts: Normal. No calcified stones. No ductal dilation. Pancreas: Normal. No ductal dilation. Spleen: Calcified splenic granulomas. Adrenal glands: Normal. No mass. Kidneys and ureters: Multiple right renal simple cysts with the largest measuring > 1.0 cm . Multiple left renal simple cysts with the largest measuring > 1.0 cm. Stomach and bowel: Moderate retained feces in the rectosigmoid colon. Appendix: No evidence of appendicitis. Intraperitoneal space: Unremarkable. No free air. No significant fluid collection. Vasculature: Calcification of the abdominal aorta and/or iliac arteries consistent with atherosclerotic vessel disease. Lymph nodes: Unremarkable. No enlarged lymph nodes. Urinary bladder: Unremarkable as visualized. Reproductive: Unremarkable as visualized. Bones/joints: Unremarkable. No acute fracture. Soft tissues: Unremarkable. CT/CT chest abd pel w con* IMPRESSION: 1. Severe centrilobular emphysema. 2. Moderate paraseptal emphysema. 3. Grossly stable 1.2 cm left lower lobe pulmonary nodule measuring -74 Hounsfield units most consistent with fatty hamartoma. No followup needed. 4. Right pleural calcification which could be secondary to previous empyema or hemothorax. IMPRESSION: No acute findings. COMMENTS: Consistent with the [employer]'s Incidental Findings Committee white paper (J Am Justyn Radiol 2018): Any incidental renal lesion less than 1 cm or classified as too small to characterize, or any incidental cystic renal lesion characterized as simple-appearing, is likely benign. No follow-up imaging is recommended for these lesions per consensus recommendations based on imaging criteria.
[2022-02-24] MEDS: iohexol 350 mg/mL 500 mL Btl (per mL) IV (14:13)
== END 2022-02-24 12:01 | disposition home or self-care (01) ==
PROVIDERS: PCP Nurse Practitioner Family; Visit Provider Nurse Practitioner
DX: R91.1 Solitary pulmonary nodule (principal)
CPT/HCPCS: 71260; 74177; Q9967

== ENCOUNTER → 2022-04-04 09:22 | Outpatient (BNVA) | payer MEDICAID, SELFPAY | PROVIDERS: PCP Nurse Practitioner Family; Visit Provider Internal Medicine Pulmonary Disease | DX: R91.1 Solitary pulmonary nodule (principal); I26.99 Other pulmonary embolism without acute cor pulmonale; J44.9 Chronic obstructive pulmonary disease, unspecified; R63.4 Abnormal weight loss; Z68.1 Body mass index [BMI] 19.9 or less, adult; Z87.891 Personal history of nicotine dependence | CPT/HCPCS: 99204 ==

== ENCOUNTER 2022-04-30 06:06 | Outpatient (CLI) | payer MEDICAID, SELFPAY ==
--- NOTE | 2022-04-30 09:09 | PETR_ITS ---
PROCEDURE INFORMATION: Exam: PET/CT Skull Base to Mid-thigh Exam date and time: 04/30/2022 10:43 AM Age: 72 years old Clinical indication: Abnormal findings; 02/11/22 cta chest: ; Additional info: R91.8 - other nonspecific abnormal finding of lung field, 02/11/22 cta chest: LABS AND CLINICAL REPORTS: Glucose: 108 mg/dl Treatment strategy for malignancy (PET staging): Initial Staging (PI) TECHNIQUE: Imaging protocol: Following at least four-hour fasting and following the injection of F-18-FDG, low dose CT images were obtained. Then, PET images were obtained. Attenuation corrected images were constructed using the CT scan. Fused images of PET and CT were reviewed. The standardized uptake values (SUV) reported below are maximum values within a region of interest, expressed in gm/ml. Exam includes orbital meatal line to mid-thigh. Radiopharmaceutical: 15.86 mCi F-18 FDG (Fluorodeoxyglucose), IV. Time of imaging post radiopharmaceutical administration: 1 hour Injection site: site COMPARISON: 1. CT chest abdomen pelvis with contrast 02/24/2022. 2. CTA chest 02/12/2022. 3. CT abdomen pelvis 08/07/2021. FINDINGS: Brain: Visualized brain has normal physiologic uptake. Pharynx: No abnormal uptake. Larynx: No abnormal uptake. Lungs, pleura and trachea: A smooth pulmonary nodule in the lateral basal segment of the left lower lobe is 1.2 x 1.4 x 1.3 cm (TR x AP x CC), which is unchanged from the prior CTs. Its central density of -71 HU is most consistent with a fatty hamartoma. It is not FDG avid. Its SUV max is only 0.7, which is consistent with a hamartoma. It is not consistent with malignancy. There are no other pulmonary nodules. Pulmonary hyperinflation due to severe emphysema. In the right upper lobe, at the anterolateral aspect of the anterior segment, a calcified pleural plaque, 1.5 x 0.9 x 0.3 cm, is not FDG avid (image 5:23). It is of no clinical significance. It may be due to remote trauma trauma, surgery or infection. In the left upper lobe, at the anteromedial aspect of the lingula, there is a 5 x 5 mm calcified granuloma. Heart: Heart size is normal. Mediastinal space: No abnormal uptake. Liver: No abnormal uptake. Gallbladder and bile ducts: No abnormal uptake. Pancreas: No abnormal uptake. Spleen: Spleen is normal in size. Multiple splenic calcifications are consistent with remote granulomatous disease. Adrenal glands: No abnormal uptake. Kidneys and ureters: Stable bilateral renal cysts are not FDG avid. The largest cyst, at the upper pole the left kidney, is 2.5 cm. Bilateral nonobstructive nephrolithiasis. There is a 2 mm stone in the upper right kidney and 3 mm stone in the upper left kidney. Stomach and bowel: Stomach and duodenum are unremarkable. Small bowel loops are normal in caliber. Focal marked FDG avidity in the lateral wall of the distal descending colon is 9 x 8 x 7 mm (series 4, image 125). Its SUV max is 9.5. There is no corresponding abnormality on today's CT or on the CT pelvis 02/24/2022. Reproductive: Moderate prostate enlargement. Vasculature: There is moderate calcific atherosclerosis of the abdominal aorta and iliac arteries. There is no aneurysm. Lymph nodes: No abnormal uptake. No lymphadenopathy in the head, neck, chest, abdomen, pelvis or extremities. Bones/joints: Mild S-shaped midthoracic scoliosis. Sternotomy closure with wire sutures. Soft tissues: No metabolically active areas. [facility] [id number] IMPRESSION: 1. 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 Its SUV max is only 0.7. There are no FDG avid pulmonary nodules. 2. Pulmonary hyperinflation due to severe emphysema. 3. Focal marked FDG avidity in the lateral wall of the distal descending colon is 9 x 8 x 7 mm. Its SUV max is 9.5. Although there is no corresponding abnormality on today's CT or on the CT pelvis 02/24/2022, it is concerning for possible colon cancer and colonoscopy is advised.
== END 2022-04-30 06:07 | disposition home or self-care (01) ==
LOC: RAD 05-02 06:07
PROVIDERS: PCP Nurse Practitioner Family; Visit Provider Internal Medicine Pulmonary Disease
DX: R91.8 Other nonspecific abnormal finding of lung field (principal); J43.9 Emphysema, unspecified
CPT/HCPCS: 78815; A9552

== ENCOUNTER → 2022-06-07 11:22 | Outpatient (BNVA) | payer MEDICAID, SELFPAY | PROVIDERS: PCP Nurse Practitioner Family; Visit Provider Surgery | DX: K59.00 Constipation, unspecified (principal) | CPT/HCPCS: 99203; 99214 ==

== ENCOUNTER → 2023-02-22 11:18 | Outpatient (BNVA) | payer MEDICAID, SELFPAY | PROVIDERS: PCP Nurse Practitioner Family; Visit Provider Nurse Practitioner Family | DX: R05.9 Cough, unspecified (principal); J44.9 Chronic obstructive pulmonary disease, unspecified | CPT/HCPCS: 87400; 87426 ==

== ENCOUNTER → 2023-05-15 14:32 | Outpatient (BNVA) | payer MEDICAID, SELFPAY | PROVIDERS: PCP Nurse Practitioner Family; Visit Provider Nurse Practitioner | DX: J44.9 Chronic obstructive pulmonary disease, unspecified (principal); Z13.6 Encounter for screening for cardiovascular disorders | CPT/HCPCS: 80053; 80061 ==

== ENCOUNTER 2024-04-24 13:51 | Emergency (ER) | payer MEDICAID, SELFPAY ==
[2024-04-24 13:53] VITALS: BP 130/76; PULSE 96; RESP 18; TEMP 37.1; O2SAT 90; BMI 22.8
--- NOTE | 2024-04-24 13:55 | ECG_ITS ---
[email or web address] Date: 2024-[facility]24 Pat Name: Emile Ray Department: Room: Gender: Male Lpn Or Medical Assistant: : 1950 Requested By: Ivone Bonilla Order Number: [id number] Sampson MD: Alonzo Maya M.D. Measurements Intervals [place] Rate: 87 P: 86 ND: 144 QRS: 93 QRSD: 82 T: -73 QT: 344 QTc: 415 Interpretive Statements SINUS RHYTHM BORDERLINE RIGHT AXIS DEVIATION [QRS AXIS > 90] MODERATE T-WAVE ABNORMALITY, CONSIDER ANTERIOR ISCHEMIA [-0.1+ mV T-WAVE IN V3/V4] MODERATE T-WAVE ABNORMALITY, CONSIDER INFERIOR ISCHEMIA [-0.1+ mV T-WAVE IN II/aVF] Compared to ECG 02/12/2022 02:57:28 T-wave abnormality now present Possible ischemia now present Electronically Signed On 04-26-2024 19:11:45 CDT by Alonzo Maya M.D. [email or web address]
--- NOTE | 2024-04-24 13:56 | XR_ITS ---
WS: [id number] Portable AP upright chest, 04/24/2024 Clinical Data: sob Comparison: Portable chest, 02/11/2022 Findings: No nodules, masses or effusions are seen. The heart is normal. The pulmonary vascularity is not increased. No pneumonia or pneumothorax is seen. The diaphragms are flattened. There are small surgical sutures in the periphery of the right lung. There are midline sternotomy sutures. The aortic arch and descending thoracic aorta show calcification and tortuosity. There are monitor leads on the chest wall. XR/XR chest 1V portable [id number] Impression: 1. Hyperinflation with postoperative sutures in the right lung. 2. Atherosclerosis.
--- NOTE | 2024-04-24 13:57 | ED_ITS ---
HPI - SOB/Dyspnea 2 General: Chief Complaint: Shortness of Breath/Dyspnea Stated Complaint: SOB, Weakness Time Seen by Provider: 04/24/24 13:53 Source: patient and EMS Mode of arrival: EMS Limitations: no limitations History of Present Illness: HPI Narrative: 74-year-old male has a history of COPD w ears 2 L oxygen at baseline states today has had some increased dyspnea he is 95% here on his 2 L she did receive a breathing treatment route states he feels improved after that. He had a slight cough denies any fever denies any pain. Associated symptoms: Deny abdominal pain, chest pain, fever(s), nausea or vomiting Related Data Previous Rx's ?Medication ?Instructions ?Recorded nebulizer accessories #1 ea 02/22/23 albuterol sulfate 2.5 mg/3 mL 2.5 mg (3 mL) inhalation TID PRN 05/15/23 (0.083 %) solution for nebulization wheezing #180 mL albuterol sulfate 90 mcg/actuation 2 puff inhalation Q ID PRN 02/04/24 aerosol inhaler shortness of breath or wheez ing 30 days #6.7 grams fluticasone 100 mcg-salmeterol 50 1 inh inhalation BID #60 ea 02/04/24 mcg/dose blistr powdr for inhalation (Advair Diskus) tiotropium bromide 18 mcg capsule 1 cap inhalation EDEL LY #30 02/04/24 with inhalation device (Spiriva inhalations with HandiHaler) prednisone 50 mg tablet 50 mg PO DAILY #5 tabs 04/24 Allergies Allergy/AdvReac Type Severity Reaction Status Date / Time No Known Allergies Allergy Verified 01/31/24 15:44 Review of Systems 2 Const: Reports: chills and fatigue; Denies: fever(s), body aches or change in appetite ENMT: Denies: throat pain or dental pain Card: Denies: chest pain Resp: Reports: dyspnea, non-productive cough and wheezing GI: Denies: abdominal pain, nausea, vomiting or diarrhea : Denies: dysuria Musc: Denies: neck pain or back pain Skin/Breast: Denies: rash Neuro: Denies: headache(s) PFSH ED 2 PFSH: Medical History Requires oxygen therapy History of pulmonary embolus (PE) COPD (chronic obstructive pulmonary disease) Surgical History H/O excision of mass (11/04/20) left ring finger History of lung surgery Right lung 2010 Family History Denies family history of Diabetes Cancer Hypertension Social History Smoking and tobacco/nicotine status: former use of tobacco/nicotine Quit status (tobacco/nicotine): has quit using Second hand smoke exposure: No Alcohol intake: never Substance/Drug Use: never Adopted: No Caregiver/support person: No Lives independently: Yes Household members: family Marital status: Single Number of children: 0 service: No Current occupational status: unemployed Do you think of yourself as: Straight/Heterosexual Current gender identity: Male Physical Exam 2 Const: COMMON NORMALS: patient oriented x3 HENMT: COMMON NORMALS: normocephalic and atraumatic HEAD & SCALP: n ormocephalic and atraumatic Neck/C-Spine: COMMON NORMALS: full ROM and supple Chest: COMMONS NORMALS: normal inspection of the chest Resp: COMMON NORMALS: No retractions and No use of accessory muscles A USCULTATION: wheezes Cardio: COMMON NORMALS: regular rate, regular rhythm and No murmurs present (Cardio) RATE: regular rate RHYTHM: regular rhythm GI: COMMON NORMALS: Normal to inspection, nondistended, normoactive bowel sounds present, Soft to palpation, non-tender and no masses PALPATION: Yes Soft to palpation Extremity: COMMON NORMALS: normal to inspection and full ROM Neuro: COMMON NORMALS: patient oriented x3, moves all extremities and no focal motor deficits Psych: COMMON NORMALS: mental status grossly normal, Normal thought process present and cooperative THOUGHT PROCESS: Normal thought process present Skin: COMMON NORMALS: no rashes or lesions noted and no wounds GENERAL SKIN EXAM: no rashes or lesions noted Course 2 Vital Signs: Vital signs: Vital Signs Temperature 98.7 F 04/24/24 13:53 Pulse Rate 88 04/24/24 14:49 Respiratory Rate 16 04/24/24 14:49 Blood Pressure 130/76 04/24/24 14:49 Pulse Oximetry 96 04/24/24 14:49 Oxygen Delivery Me thod Room Air 04/24/24 14:49 Oxygen Flow Rate 2 04/24/24 14:08 MDM - SOB/Dyspnea Medical Decision Making Patient presents here with shortness of breath likely COPD exacerbation patient has no signs of pneumonia COVID flu is negative he feels improved after breathing treatment steroids he is to use his inhaler at home we will place him on 5 days of prednisone he is follow-up with PCP and return if worsening. Medical Records I reviewed the patient's medical records. Lab Data I reviewed the patient's lab results. 04/24/24 14:20 04/24/24 14:20 Labs/Radiology: Radiology Impressions Chest X-Ray 04/24/24 13:56 Impression: 1. Hyperinflation with postoperative sutures in the right lung. 2. Atherosclerosis. Laboratory Results WBC 5.12 10^3/uL (3.29-11.43) 04/24/24 14:20 RBC 4.25 10^6/uL (3.85-5.65) 04/24/24 14:20 Hgb 10.70 g/dL (11.27-16.99) L 04/24/24 14:20 Hct 35.1 % (37-53) L 04/24/24 14:20 MCV 82.6 fl (82-101) 04/24/24 14:20 MCH 25.2 pg (27-33) L 04/24/24 14:20 MCHC 30.5 g/dL (30-55) 04/24/24 14:20 RDW 14.0 % (12.1-15.1) 04/24/24 14:20 Plt Count 189 10^3/cmm (157-399) 04/24/24 14:20 MPV 9.4 fL (7.4-10.4) 04/24/24 14:20 Neut % (Auto) 64.4 % 04/24/24 14:20 Lymph % (Auto) 24.2 % 04/24/24 14:20 [place] % (Auto) 10.2 % 04/24/24 14:20 Eos % (Auto) 0.0 % 04/24/24 14:20 Baso % (Auto) 0.8 % 04/24/24 14:20 Neut # (Auto) 3.30 10^3/uL (1.8-7.7) 04/24/24 14:20 Lymph # (Auto) 1.2 10^3/uL (0.8-4.8) 04/24/24 14:20 [place] # (Auto) 0.5 10^3/uL (0.2-0.9) 04/24/24 14:20 Eos # (Auto) 0.0 10^3/uL (0.0-0.8) 04/24/24 14:20 Baso # (Auto) 0.0 10^3/uL (0.0-0.1) 04/24/24 14:20 Nucleated RBC % (auto) 0 % 04/24/24 14:20 Nucleated RBCs # 0.0 /100WBC 04/24/24 14:20 Sodium 132 mmol/L (136-145) L 04/24/24 14:20 Potassium 3.8 mmol/L (3.5-5.1) 04/24/24 14:20 Chloride 96 mmol/L (98-107) L 04/24/24 14:20 Carbon Dioxide 25 mmol/L (22-29) 04/24/24 14:20 Anion Gap 14.8 (5-19) 04/24/24 14:20 BUN 17 mg/dL (8-23) 04/24/24 14:20 Creatinine 1.0 mg/dL (0.7-1.2) 04/24/24 14:20 GFR Calculation Not Reportable 04/24/24 14:20 Glucose 107 mg/dL (65-115) 04/24/24 14:20 Calculated Osmolality 276 mOsm/kg (285-295) L 04/24/24 14:20 Calcium 8.4 mg/dL (8.5-10.5) L 04/24/24 14:20 Total Bilirubin 0.4 mg/dL (0.15-1.2) 04/24/24 14:20 AST 23 U/L (0-40) 04/24/24 14:20 ALT 15 U/L (0-41) 04/24/24 14:20 Alkaline Phosphatase 84 U/L (40-130) 04/24/24 14:20 NT-Pro-B Natriuret Pep 1505 pg/mL (0-125) H 04/24/24 14:20 Total Protein 6.3 g/dL (6.6-8.7) L 04/24/24 14:20 Albumin 3.4 g/dL (3.5-5.2) L 04/24/24 14:20 Globulin 2.9 g/dL (1.3-4.6) 04/24/24 14:20 Influenza A (PCR) Negative (Negative) 04/24/24 14:08 Influenza Type B (PCR) Negative (Negative) 04/24/24 14:08 RSV (PCR) Negative (Negative) 04/24/24 14:08 SARS-CoV-2 (PCR) Negative (Negative) 04/24/24 14:08 All radiology interpretation(s) finalized by discharge EKG Data EKG 1: I personally reviewed and interpreted this EKG as follows: EKG Interpretation Date: 04/24/24 EKG interpretation time: 13:55 Interpretation: nsr hr [address] elevation qrs 82 qtc 389 Discharge Plan Discharge Patient Disposition: Home Clinical Impression: Acute exacerbation of chronic obstructive airways disease Condition: Stable Prescriptions: New prednisone 50 mg tablet 50 mg PO DAILY Qty: 5 0RF No Action albuterol sulfate 2.5 mg /3 mL (0.083 %) solution for nebulization 2.5 mg INHALATION TID PRN (Reason: wheezing) Qty: 180 5RF Patient Comments: Hasn't taken for several months fluticasone propion-salmeterol [Advair Diskus] 100-50 mcg/dose blister with device 1 inh inhalation BID Qty: 60 5RF tiotropium bromide [Spiriva with HandiHaler] 18 mcg capsule, w/inhalation device 1 cap inhalation DAILY Qty: 30 5RF Rx Instructions: puncture 1 cap using device; one dose = 2 inhalations albuterol sulfate 90 mcg/actuation HFA aerosol inhaler 2 puff inhalation QID PRN (Reason: shortness of breath or wheezing) 30 Days Qty: 6.7 5RF (DME) nebulizer accessories Kit See Rx Instructions .Route Qty: 1 0RF Rx Instructions: As directed Discharge Orders: Discharge ED (Routine); Ordered 04/24/24 Ordered By: Ivone Bonilla Referrals: Mandi Head, MANAGER [facility] [Primary Care Provider] - Discharge Diet: Advance as tolerated Discharge Activity: Resume usual activity Patient Instructions: COPD (Chronic Obstructive Pulmonary Disease) (ED) Print Language: Welsh Coding Level of Care Code ED Electric Cutter Operator for Pardeep Pozo
[2024-04-24] MEDS: methylPREDNISolone sod succ 125 mg/2 mL INJ IV (14:04)
[2024-04-24 14:08] VITALS: PULSE 90; RESP 16; O2SAT 92
[2024-04-24] MEDS: ipratropium-albuterol 3 mL Neb INHALATION (14:11)
[2024-04-24 14:13] VITALS: PULSE 90
[2024-04-24 14:47] LABS: Influenza A NEGATIVE (Negative); Influenza B NEGATIVE (Negative); Respiratory Syncytial Virus Ce NEGATIVE (Negative); SARS-CoV-2 PCR NEGATIVE (Negative)
[2024-04-24 14:49] VITALS: BP 130/76; PULSE 88; RESP 16; O2SAT 96
[2024-04-24 14:52] LABS: Basophils % 0.8 %; Hematocrit 35.1 % (37-53); Lymphocytes # 1.2 10^3/uL (0.8-4.8); Lymphocytes % 24.2 %; Mean Corpuscular HGB Conc 30.5 g/dL (30-55); Mean Corpuscular Hemoglobin 25.2 pg (27-33); Mean Corpuscular Volume 82.6 fl (82-101); Mean Platelet Volume 9.4 fL (7.4-10.4); Monocytes # 0.5 10^3/uL (0.2-0.9); Monocytes % 10.2 %; Neutrophils % 64.4 %; Nucleated Red Blood Cells % 0 %; Platelet Count 189 10^3/cmm (157-399); Red Blood Count 4.25 10^6/uL (3.85-5.65); White Blood Count 5.12 10^3/uL (3.29-11.43)
[2024-04-24 15:13] LABS: Alanine Aminotransferase 15 U/L (0-41); Albumin Level 3.4 g/dL (3.5-5.2); Alkaline Phosphatase 84 U/L (40-130); Anion Gap 14.8 (5-19); Aspartate Amino Transferase 23 U/L (0-40); Blood Urea Nitrogen 17 mg/dL (8-23); Calcium 8.4 mg/dL (8.5-10.5); Carbon Dioxide 25 mmol/L (22-29); Chloride 96 mmol/L (98-107); Creatinine Clr Calc Pharmacy 63.5156; Globulin 2.9 g/dL (1.3-4.6); Glucose 107 mg/dL (65-115); NT Pro B Type Natriuretic Pept 1505 pg/mL (0-125); Osmolality Calculated 276 mOsm/kg (285-295); Potassium 3.8 mmol/L (3.5-5.1); Sodium 132 mmol/L (136-145); Total Bilirubin 0.4 mg/dL (0.15-1.2); Total Protein 6.3 g/dL (6.6-8.7)
[2024-04-24 15:50] VITALS: BP 129/81; PULSE 84; O2SAT 92
== END 2024-04-24 15:53 | disposition home or self-care (01) ==
PROVIDERS: Emergency Provider Emergency Medicine; PCP Nurse Practitioner
DX: J44.1 Chronic obstructive pulmonary disease with (acute) exacerbation (principal); Z11.52 Encounter for screening for COVID-19; Z87.891 Personal history of nicotine dependence
CPT/HCPCS: 36415; 71045; 80053; 83880; 85025; 87637; 93005; 94640; 96374; 99285; J2919; J9999

== ENCOUNTER 2024-04-27 16:48 | Inpatient (IN) | payer MEDICAID, SELFPAY ==
[2024-04-27] VITALS (12 sets, daily range): BP systolic 142–186; BP diastolic 93–102; PULSE 81–109; RESP 18–29; TEMP 36.4–36.7; O2SAT 88–100; BMI 17.6
--- NOTE | 2024-04-27 16:55 | XRR_ITS ---
PROCEDURE INFORMATION: Exam: XR Chest Exam date and time: 04/27/2024 4:56 PM Age: 74 years old Clinical indication: Shortness of breath; Prior surgery; Surgery date: 6+ months; Surgery type: Cabg; Right lung TECHNIQUE: Imaging protocol: Radiologic exam of the chest. Views: 1 view. COMPARISON: CR XR chest 1V portable [id number] 04/24/2024 2:08 PM FINDINGS: Lungs: Suture lines within bilateral lungs. Ongoing pulmonary hyperinflation with emphysematous changes. Patchy airspace opacities within the right mid lung, new from prior. Pleural spaces: Chronic blunting of the costophrenic angles. Heart/Mediastinum: Unremarkable. No cardiomegaly. Vasculature: Atherosclerotic aortic calcifications with tortuosity. Bones/joints: Post median sternotomy and CABG. XR/XR chest 1V portable [id number] IMPRESSION: 1. Patchy airspace opacities in the right mid lung are new from prior and may represent developing infiltrate. 2. Remainder stable.
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
[2024-04-27] MEDS: albuterol 2.5 mg/3 mL Neb INHALATION (17:20)
[2024-04-27 17:28] LABS: Basophils % 0.2 %; Hematocrit 40.8 % (37-53); Lymphocytes # 0.6 10^3/uL (0.8-4.8); Lymphocytes % 6.2 %; Mean Corpuscular HGB Conc 31.1 g/dL (30-55); Mean Corpuscular Hemoglobin 25.3 pg (27-33); Mean Corpuscular Volume 81.4 fl (82-101); Mean Platelet Volume 10.2 fL (7.4-10.4); Monocytes # 0.4 10^3/uL (0.2-0.9); Monocytes % 3.7 %; Neutrophils # 8.87 10^3/uL (1.8-7.7); Neutrophils % 89.3 %; Nucleated Red Blood Cells % 0 %; Platelet Count 223 10^3/cmm (157-399); Red Blood Count 5.01 10^6/uL (3.85-5.65); Red Cell Distribution Width 14.9 % (12.1-15.1); White Blood Count 9.94 10^3/uL (3.29-11.43)
[2024-04-27 17:30] LABS: ABG PCO2 43.2 mmHg (35-45); ABG PH Result 7.37 (7.35-7.45); Alveolar-Arterial Oxygen Gradi 14.7 mmHg (5-10); Arterial Blood Gas Hematocrit 39.4 % (42-52); Base Excess ABG -0.8 mmol/L (-2.0-2.0); Blood Gas Allen Test Pos; Blood Gas Operator Identificat MONRO; Blood Gas Sample Site Radial, left; Blood Gas Sample Type Arterial; HCO3 ABG 24.7 mmol/L (22-26); HGB O2 Sat 93.7 % (95-100); Ionized Calcium Level - ABG 1.1 mmol/L (1.1-1.4); Methemoglobin 0.4 % (0.4-1.5); Oxygen Device NC; PO2 ABG 84.1 mmHg (80.0-100.0); PO2 FiO2 Ratio Arterial Blood 233; Potassium Level - ABG 4.6 mmol/L (3.5-5.0); Total Hemoglobin 12.8 g/dL (14-18)
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
[2024-04-27 17:45] LABS: Lactic Sepsis W/Reflex 3.1 mmol/L (0.5-2.2)
[2024-04-27 18:03] LABS: Reflex Lactate Order REFLEX LACTIC ORDERD
[2024-04-27] MEDS: doxycycline 100 MG in sodium chloride 0.9% (plus) 100 ML IV (18:04)
[2024-04-27 18:09] LABS: Procalcitonin 1.25 ng/mL (0-0.5)
[2024-04-27 18:22] LABS: Albumin Level 3.5 g/dL (3.5-5.2); Alkaline Phosphatase 128 U/L (40-130); Anion Gap 20.9 (5-19); Blood Urea Nitrogen 72 mg/dL (8-23); Calcium 8.4 mg/dL (8.5-10.5); Carbon Dioxide 22 mmol/L (22-29); Chloride 97 mmol/L (98-107); Creatinine Clr Calc Pharmacy 18.7597; Globulin 2.7 g/dL (1.3-4.6); Glucose 160 mg/dL (65-115); Osmolality Calculated 305 mOsm/kg (285-295); Potassium 4.9 mmol/L (3.5-5.1); Sodium 135 mmol/L (136-145); Total Bilirubin 1.4 mg/dL (0.15-1.2); Total Protein 6.2 g/dL (6.6-8.7)
[2024-04-27 18:29] LABS: Influenza A NEGATIVE (Negative); Influenza B NEGATIVE (Negative); Respiratory Syncytial Virus Ce NEGATIVE (Negative); SARS-CoV-2 PCR NEGATIVE (Negative)
[2024-04-27 18:30] LABS: NT Pro B Type Natriuretic Pept 30383 pg/mL (0-125)
[2024-04-27 18:37] LABS: Alanine Aminotransferase 2099 U/L (0-41); Aspartate Amino Transferase 2347 U/L (0-40)
[2024-04-27 18:40] LABS: Troponin(5th) Baseline 103 ng/L (0-15)
--- NOTE | 2024-04-27 18:40 | CTR_ITS ---
PROCEDURE INFORMATION: Exam: CT Chest Without Contrast; Diagnostic Exam date and time: 04/27/2024 6:46 PM Age: 74 years old Clinical indication: Cough and shortness of breath; Prior surgery; Surgery date: 6+ months; Surgery type: Cabg; Cough with SOB. Acute renal failure. History of copd. ; Additional info: Abnormal chest x-ray, renal failure, rule out obstructive ur TECHNIQUE: Imaging protocol: Diagnostic computed tomography of the chest without contrast. Radiation optimization: All CT scans at this facility use at least one of these dose optimization techniques: automated exposure control; mA and/or kV adjustment per patient size (includes targeted exams where dose is matched to clinical indication); or iterative reconstruction. COMPARISON: 1. PT PET [facility] INITIAL [id number] 04/30/2022 10:43 AM 2. CR (CHEST, ) 04/27/2024 4:[address] chest abdpel w/*[id number] 02/24/2022 1:34 PM RADIATION DOSE METRICS: Total DLP (mGy-cm): 460.36 FINDINGS: Trachea: Mild layering secretions in the trachea. Lungs: Patchy areas of consolidation in the right middle lobe with milder areas in the right upper and lower lobes. Minimal tree-in-bud nodularity laterally in the left lower lobe. Severe emphysematous changes are again seen. Postsurgical changes in the lungs. Stable left lower lobe hamartoma. No new or enlarging pulmonary nodules. Pleural spaces: Unremarkable. No pneumothorax. No pleural effusion. Heart: Unremarkable. No cardiomegaly. No pericardial effusion. Lymph nodes: Unremarkable. No enlarged lymph nodes. Vasculature: Moderate atherosclerotic aortic calcifications. No aortic aneurysm. The main pulmonary artery is dilated, measuring 3.6 cm in caliber. Bones/joints: Mild dextroscoliosis of the thoracic spine with multilevel degenerative changes. Median sternotomy. Soft tissues: Unremarkable. COMMENTS: The presence of pulmonary emphysema on CT is an independent risk factor for lung cancer. In the absence of a history or active diagnosis of lung cancer, it is recommended that this patient with emphysema be evaluated for enrollment in a low dose CT lung cancer screening program. PROCEDURE INFORMATION: Exam: CT Abdomen And Pelvis Without Contrast Exam date and time: 04/27/2024 6:46 PM Age: 74 years old Clinical indication: Cough and shortness of breath; Prior surgery; Surgery date: 6+ months; Surgery type: Cabg; Cough with SOB. Acute renal failure. History of copd. ; Additional info: Abnormal chest x-ray, renal failure, rule out obstructive ur TECHNIQUE: Imaging protocol: Computed tomography of the abdomen and pelvis without contrast. Radiation optimization: All CT scans at this facility use at least one of these dose optimization techniques: automated exposure control; mA and/or kV adjustment per patient size (includes targeted exams where dose is matched to clinical indication); or iterative reconstruction. COMPARISON: 1. [facility] [id number] 04/30/2022 10:[address] chest abdpel w/*[id number] 02/24/2022 1:34 PM RADIATION DOSE METRICS: Total DLP (mGy-cm): 460.36 FINDINGS: Limitations: Suboptimal image quality due to motion artifact. Liver: Normal. No mass. Gallbladder and biliary ducts: Normal. No calcified stones. No ductal dilation. Pancreas: Normal. No ductal dilation. Spleen: Normal. No splenomegaly. Adrenal glands: Normal. No mass. Kidneys and ureters: Stable nonobstructing bilateral renal calculi. Bilateral renal cysts again noted. No hydronephrosis. Stomach and bowel: Unremarkable. No obstruction. No mucosal thickening. Appendix: No evidence of appendicitis. Intraperitoneal space: Small volume free fluid in the abdomen/pelvis. Vasculature: Moderate diffuse atherosclerotic aortoiliac calcifications. No abdominal aortic aneurysm. Lymph nodes: Unremarkable. No enlarged lymph nodes. Urinary bladder: Unremarkable as visualized. Reproductive: Unremarkable as visualized. Bones/joints: Degenerative changes of the lumbar spine. Soft tissues: Unremarkable. CT/[place] [id number] IMPRESSION: 1. Patchy consolidation most pronounced in the right middle lobe and right lower lobe, compatible with multifocal infection. Recommend imaging follow-up after clinical treatment to document resolution. 2. Severe emphysema. 3. Dilated main pulmonary artery can be seen with pulmonary arterial hypertension. 4. Remainder stable. IMPRESSION: 1. Bilateral nonobstructing renal calculi. No evidence of obstructive uropathy. 2. Small volume free fluid is nonspecific. Consider short interval follow-up CT abdomen/pelvis with contrast for further evaluation. 3. Additional ancillary/chronic findings as above are similar to prior.
[2024-04-27] MEDS: sodium chloride 0.9% 500 ML 999 ML IV (19:23)
[2024-04-27 20:31] LABS: Troponin 5 2HR 95.31 ng/L (0-15)
[2024-04-27 20:34] LABS: Lactic Acid level (Lactate) 2.3 mmol/L (0.5-2.2)
[2024-04-27 20:43] LABS: Troponin 5 2HR Delta -7.69 ABS# (0-10)
[2024-04-27] MEDS: methylPREDNISolone sod succ 40 mg/mL INJ IVP (22:03)
[2024-04-27] MEDS: cefTRIAXone 1,000 mg SDV 1000 MG IVP (22:03)
[2024-04-27] MEDS: sodium chloride 0.9% 1,000 ML 75 ML IV (22:04)
[2024-04-27] MEDS: budesonide 0.5 mg/2 mL Neb INHALATION (22:07)
[2024-04-27] MEDS: ipratropium-albuterol 3 mL Neb INHALATION (22:07)
--- NOTE | 2024-04-27 23:18 | ECG_ITS ---
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1950 Requested By: Lidya Campo Order Number: [id number] Sampson MD: RIAN ALBERT Measurements Intervals [place] Rate: 93 P: 76 [place]: 144 QRS: 76 QRSD: 94 T: 269 QT: 368 QTc: 460 Interpretive Statements SINUS RHYTHM WITH OCCASIONAL VENTRICULAR PREMATURE COMPLEXES ST DEVIATION AND MODERATE T-WAVE ABNORMALITY, CONSIDER ANTEROLATERAL ISCHEMIA [-0.1+ mV T-WAVE IN V3-V6] ST DEVIATION AND MODERATE T-WAVE ABNORMALITY, CONSIDER INFERIOR ISCHEMIA [-0.1+ mV T-WAVE IN II/aVF] Compared to ECG 04/24/2024 13:55:59 Ventricular premature complex(es) now present T-wave abnormality still present Possible ischemia still present Electronically Signed On 04-29-2024 18:18:29 CDT by RIAN ALBERT [email or web address]
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
[2024-04-28] VITALS (16 sets, daily range): BP systolic 113–157; BP diastolic 50–89; PULSE 79–100; RESP 15–22; TEMP 36.4–36.5; O2SAT 91–100
--- NOTE | 2024-04-28 00:20 | ECG_ITS ---
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1950 Requested By: Lidya Campo Order Number: [id number] Sampson MD: RIAN ALBERT Measurements Intervals [place] Rate: 85 P: 91 MI: 137 QRS: 91 QRSD: 96 T: -89 QT: 390 QTc: 466 Interpretive Statements SINUS RHYTHM WITH OCCASIONAL VENTRICULAR PREMATURE COMPLEXES WITH OCCASIONAL SUPRAVENTRICULAR PREMATURE COMPLEXES BORDERLINE RIGHT AXIS DEVIATION [QRS AXIS > 90] PATTERN CONSISTENT WITH PULMONARY DISEASE ST DEVIATION AND MODERATE T-WAVE ABNORMALITY, CONSIDER ANTEROLATERAL ISCHEMIA [-0.1+ mV T-WAVE IN V3-V6] ST DEVIATION AND MODERATE T-WAVE ABNORMALITY, CONSIDER INFERIOR ISCHEMIA [-0.1+ mV T-WAVE IN II/aVF] Compared to ECG 04/27/2024 23:18:12 No significant changes Electronically Signed On 04-29-2024 18:16:35 CDT by RIAN ALBERT [email or web address]
[2024-04-28 01:26] LABS: Troponin 5 6HR 73.73 ng/L (0-15)
[2024-04-28 01:28] LABS: Troponin 5 6HR Delta -29.27 ng/L (0-12)
[2024-04-28 01:31] LABS: C Reactive Protein 144.4 mg/L (0.0-4.9)
[2024-04-28] MEDS: ipratropium-albuterol 3 mL Neb INHALATION ×6 (02:35→23:49)
[2024-04-28] MEDS: methylPREDNISolone sod succ 40 mg/mL INJ IVP ×4 (04:30→21:32)
[2024-04-28] MEDS: doxycycline 100 MG in sodium chloride 0.9% (plus) 100 ML IV ×2 (05:40→17:00)
[2024-04-28] MEDS: budesonide 0.5 mg/2 mL Neb INHALATION ×2 (08:55→20:20)
[2024-04-28 09:09] LABS: Basophils % 0.1 %; Hematocrit 41.1 % (37-53); Lymphocytes # 0.3 10^3/uL (0.8-4.8); Lymphocytes % 4.2 %; Mean Corpuscular HGB Conc 30.4 g/dL (30-55); Mean Corpuscular Volume 82.2 fl (82-101); Mean Platelet Volume 9.8 fL (7.4-10.4); Monocytes # 0.1 10^3/uL (0.2-0.9); Monocytes % 1.7 %; Neutrophils # 6.72 10^3/uL (1.8-7.7); Neutrophils % 93.6 %; Nucleated Red Blood Cells % 0 %; Platelet Count 187 10^3/cmm (157-399); Red Cell Distribution Width 14.8 % (12.1-15.1); White Blood Count 7.18 10^3/uL (3.29-11.43)
[2024-04-28 09:35] LABS: Albumin Level 3.1 g/dL (3.5-5.2); Alkaline Phosphatase 118 U/L (40-130); Anion Gap 16.7 (5-19); Blood Urea Nitrogen 58 mg/dL (8-23); Calcium 8.3 mg/dL (8.5-10.5); Carbon Dioxide 22 mmol/L (22-29); Chloride 104 mmol/L (98-107); Creatinine Clr Calc Pharmacy 32.2635; Globulin 3.1 g/dL (1.3-4.6); Glucose 194 mg/dL (65-115); Osmolality Calculated 307 mOsm/kg (285-295); Potassium 4.7 mmol/L (3.5-5.1); Sodium 138 mmol/L (136-145); Total Bilirubin 1.1 mg/dL (0.15-1.2); Total Protein 6.2 g/dL (6.6-8.7)
[2024-04-28] MEDS: heparin 5,000 unit/mL INJ 1 mL 5000 UNIT SUBCUT ×2 (09:37→21:32)
[2024-04-28 09:42] LABS: Procalcitonin 0.83 ng/mL (0-0.5)
[2024-04-28 09:47] LABS: Alanine Aminotransferase 1510 U/L (0-41); Aspartate Amino Transferase 759 U/L (0-40)
[2024-04-28 09:49] LABS: Hepatitis A Antibody IgM Non-Reactive (Nonreactive); Hepatitis B Core IgM Non-Reactive (Nonreactive); Hepatitis B Surface Antigen Non-Reactive (Nonreactive); Hepatitis C Virus Antibody Non-Reactive (Nonreactive)
[2024-04-28] MEDS: sodium chloride 0.9% 1,000 ML 75 ML IV (11:21)
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
[2024-04-28 18:00] LABS: Potassium, Radom Urine 26 mmol/L
[2024-04-28 18:02] LABS: Urine Random Chloride 17 mmol/L
[2024-04-28 18:14] LABS: Urine Random Sodium 10 mmol/L
--- NOTE | 2024-04-28 18:33 | USCV_ITS ---
Emile Ray Age: 74 Gender: M : 1950 Exam Date: 04/28/2024 07:26 Ordering Phys: Johnny Jessica MD Technologist: VASHTI Exam Location: [facility] [place] Indication: sob BP: 152 / 79 HR: 84 Rhythm: Sinus Technical Quality: Adequate MEASUREMENTS (Male / Female) Normal Values 2D ECHO LV Diastolic Diameter PLAX 4.4 cm 4.2 - 5.9 / 3.9 - 5.3 cm IVS Diastolic Thickness 1.3 cm 0.6 - 1.0 / 0.6 - 0.9 cm IVS Systolic Thickness 1.4 cm LVPW Diastolic Thickness 1.1 cm 0.6 - 1.0 / 0.6 - 0.9 cm LVPW Systolic Thickness 1.3 cm LVOT Diameter 2.0 cm LV Ejection Fraction 2D Teich 59.4 % LV Ejection Fraction MOD 4C 68.8 % LV Ejection Fraction MOD 2C 72.7 % LV Ejection Fraction 2C AL 73.8 % LA Diameter 3.1 cm RA Systolic Volume 4C AL 18.0 ml RA Systolic Volume 4C MOD 17.3 ml LA Sys Volume AL 21.1 cm cubed LA Sys Volume Index AL 13.0 cm cubed/m squared Aorta at Sinotubular Diameter 2.7 cm IVC Diameter 2.5 cm M-MODE LA Ao Ratio MM 1.2 AV Cusp Separation MM 1.7 cm DOPPLER AV Peak Velocity 99.7 cm/s LVOT Peak Velocity 64.0 cm/s AV Area Cont Eq vti 1.8 cm squared AV Area Cont Eq pk 2.1 cm squared MV Peak Velocity 87.0 cm/s MV Area PHT 7.0 cm squared Mitral E to A Ratio 0.7 TV Peak Velocity 198.7 cm/s TR Peak Velocity 203.0 cm/s TR Peak Gradient 16.5 mmHg TR Mean Velocity 172.0 cm/s TR Mean Gradient 12.4 mmHg TR Velocity Time Integral 56.8 cm RV Ejection Time 0.3 s FINDINGS Left Ventricle Normal left ventricular size, systolic function and wall thickness, with no regional wall motion abnormalities. Left ventricular ejection fraction is estimated at 50%. Grade I/IV diastolic dysfunction (abnormal relaxation filling pattern), normal to mildly elevated filling pressures. Right Ventricle The right ventricle is normal in size and function. Right Atrium The right atrium is normal in size. Left Atrium The left atrium is normal in size. Mitral Valve Structurally normal mitral valve without significant stenosis or prolapse. There is no mitral regurgitation. Aortic Valve Moderate aortic valve calcification. Mild aortic valve stenosis, mean gradient 2.3 mmHg, BEATRIZ 1.8 cm squared. Trace aortic valve regurgitation. Tricuspid Valve Structurally normal tricuspid valve without significant stenosis or regurgitation. Pulmonary artery systolic pressure is normal. Pulmonic Valve Structurally normal pulmonic valve without significant stenosis. There is no pulmonic regurgitation. Pericardium Small pericardial effusion of no hemodynamic significance. Aorta Normal ascending aorta dimension. IVC Moderately dilated IVC. CONCLUSIONS Normal left ventricular size, systolic function and wall thickness, with no regional wall motion abnormalities. Left ventricular ejection fraction is estimated at 50%. Grade I/IV diastolic dysfunction (abnormal relaxation filling pattern), normal to mildly elevated filling pressures. Structurally normal mitral valve without significant stenosis or prolapse. There is no mitral regurgitation. Moderate aortic valve calcification. Mild aortic valve stenosis, mean gradient 2.3 mmHg, BEATRIZ 1.8 cm squared. Trace aortic valve regurgitation. Small pericardial effusion of no hemodynamic significance. Moderately dilated IVC. Getachew Loaiza MD (Electronically Signed) Final Date: 28 April 2024 16:49 S
--- NOTE | 2024-04-28 18:36 | USR_ITS ---
PROCEDURE INFORMATION: Exam: US Retroperitoneal, Complete, Kidneys and Bladder Exam date and time: 04/28/2024 8:02 AM Age: 74 years old Clinical indication: Condition or disease; Other: Que; Patient is a poor historian; Additional info: Acute kidney injury TECHNIQUE: Imaging protocol: Real-time ultrasound of the retroperitoneum with image documentation. Complete exam focused on the bilateral kidneys and urinary bladder. COMPARISON: [place] [id number] 04/27/2024 6:46 PM FINDINGS: Right kidney: Simple renal cysts. No stones. Mild hydronephrosis. Left kidney: Simple renal cysts. No stones. No hydronephrosis. Urinary bladder: There is a 1.6 x 0.7 x 0.9 cm exophytic bladder wall lesion suggestive of a polyp. Other findings: Mild amount of fluid in the right upper quadrant. US/US renal BI* [id number] IMPRESSION: 1. Mild right hydronephrosis. 2. Bilateral renal cysts. 3. Exophytic 1.6 cm bladder lesion, suggestive of a bladder polyp.
[2024-04-28] MEDS: cefTRIAXone 1,000 mg SDV 1000 MG IVP (21:32)
[2024-04-29] VITALS (13 sets, daily range): BP systolic 137–158; BP diastolic 81–88; PULSE 82–92; RESP 16–20; TEMP 36.3–36.6; O2SAT 92–99
[2024-04-29] MEDS: sodium chloride 0.9% 1,000 ML 75 ML IV ×2 (00:32→14:00)
[2024-04-29] MEDS: ipratropium-albuterol 3 mL Neb INHALATION ×5 (03:31→20:13)
[2024-04-29 03:51] LABS: Basophils % 0.1 %; Hematocrit 35.6 % (37-53); Lymphocytes # 0.2 10^3/uL (0.8-4.8); Mean Corpuscular HGB Conc 29.5 g/dL (30-55); Mean Corpuscular Hemoglobin 24.7 pg (27-33); Mean Corpuscular Volume 83.8 fl (82-101); Mean Platelet Volume 10.4 fL (7.4-10.4); Monocytes # 0.4 10^3/uL (0.2-0.9); Monocytes % 3.5 %; Neutrophils # 9.41 10^3/uL (1.8-7.7); Neutrophils % 93.7 %; Nucleated Red Blood Cells % 0 %; Platelet Count 183 10^3/cmm (157-399); Red Blood Count 4.25 10^6/uL (3.85-5.65); Red Cell Distribution Width 14.7 % (12.1-15.1); White Blood Count 10.04 10^3/uL (3.29-11.43)
[2024-04-29] MEDS: methylPREDNISolone sod succ 40 mg/mL INJ IVP ×4 (04:13→21:28)
[2024-04-29 04:17] LABS: Albumin Level 2.7 g/dL (3.5-5.2); Alkaline Phosphatase 110 U/L (40-130); Anion Gap 11.3 (5-19); Aspartate Amino Transferase 285 U/L (0-40); Blood Urea Nitrogen 40 mg/dL (8-23); Calcium 8.2 mg/dL (8.5-10.5); Carbon Dioxide 26 mmol/L (22-29); Chloride 105 mmol/L (98-107); Creatinine Clr Calc Pharmacy 46.9288; Globulin 2.7 g/dL (1.3-4.6); Glucose 143 mg/dL (65-115); Magnesium 2.1 mg/dL (1.7-2.3); Osmolality Calculated 298 mOsm/kg (285-295); Phosphorus 1.6 mg/dL (2.5-4.5); Potassium 4.3 mmol/L (3.5-5.1); Sodium 138 mmol/L (136-145); Total Bilirubin 0.7 mg/dL (0.15-1.2); Total Protein 5.4 g/dL (6.6-8.7)
[2024-04-29 04:28] LABS: Alanine Aminotransferase 1050 U/L (0-41)
[2024-04-29] MEDS: doxycycline 100 MG in sodium chloride 0.9% (plus) 100 ML IV ×2 (05:52→17:44)
[2024-04-29] MEDS: budesonide 0.5 mg/2 mL Neb INHALATION ×2 (08:50→20:13)
[2024-04-29] MEDS: heparin 5,000 unit/mL INJ 1 mL 5000 UNIT SUBCUT ×2 (09:09→21:28)
--- NOTE | 2024-04-29 09:50 | PC.CHAP ---
Pastoral Care Encounter/Spiritual Assessment Type of Contact [] Declined search advertising strategist visit [] Patient/Family/Request visit [] Outpatient visit [] Follow-up visit [] Physician referral [] Code/Alert [x] Routine visit [] Staff referral [] Actively dying [] Patient sleeping [] Family support [] [] Out of room [] Palliative care [] [] Receiving care in room [] Pre-surgical visit [] Trauma [] Long length of stay [] ICU visit [] Other: Relational/Emotional Strength [] Patient feels connected with others/family/visitors/staff [] Distress [] Loneliness/isolation [] Abandonment Spirituality of Patient [x] Person of Millicent [] Attends Scientology of their Millicent [x] Believes in Prayer [] Reads Bible or Tenriism materials [] There are Spiritual issues to be addressed Drawing In Machine Tender Interventions [x] Prayer [x] Active listening [] Non-anxious presence [] Spiritual/emotional support [] Crisis/trauma care [] Spiritual counseling [] Bereavement support [] Provided bereavement packet [x] Provided Bible/devotional materials [] Provided toy/stuffed animal, coloring book to patient or family member [] Provided Communion [] Anointing/[place] [] Salvation [x] Completed spiritual assessment [] Other: Impact on Illness or Injury [] Angry [] Fearful [] Anxious [] Often cries [] Exhaustion [] Unable to work [] Unable to attend mandaeism [] Unable to walk/stand [] Unable to read [] Unable to drive [] Unable to eat/drink [] Unable to sleep [] Unable to be with family [] Patient intubated [] Other: Summary Time spent with patient 5 min
--- NOTE | 2024-04-29 13:40 | P.PN_ITS ---
Subjective 2 Subjective: seen today lft continue to improve pt feeling slightly better Vitals/I&O/Wt Last Vital Signs Temp 97.4 F L 04/29/24 11:23 Pulse 88 04/29/24 11:23 Resp 16 04/29/24 11:23 BP 137/85 04/29/24 11:23 Pulse Ox 96 04/29/24 11:23 O2 Del Method Nasal Cannula 04/29/24 11:23 O2 Flow Rate 2 04/29/24 08:00 04/28/24 04/29/24 04/29/24 22:59 06:59 14:59 Intake Total 460 / 2176.25 950 / 3126.25 1060 / 1060 Output Total 850 / 1150 675 / 1825 800 / 800 Balance -390 / 1026.25 275 / 1301.25 260 / 260 Weight last 48 hrs Weight 58.151 kg Weight 55.474 kg Weight 52.617 kg Weight 54.431 kg Physical Exam 2 Narrative: General: Patient is awake. Appears much less ill than yesterday. Still cachectic appearing. Cardiovascular: Regular rhythm. No gallops. No murmurs. Lungs: Breath sounds remain diminished in bilateral bases. mainly clear with fair b/l air entry Abdomen: Scaphoid abdomen. Nontender. Extremities: No cyanosis or clubbing. Musculoskeletal: No swollen or erythematous joints. Neurological: Moves all 4 extremities. No myoclonus. Data 04/29/24 02:51 04/29/24 02:51 Micro: Microbiology 04/27/24 16:25 Bacterial Antigens - Final Urine,Voided 04/27/24 17:16 Blood Culture - Preliminary Blood NEGATIVE TO DATE 04/27/24 17:07 Blood Culture - Preliminary Blood NEGATIVE TO DATE A&P Assessment and plan (1) Sepsis: Presentation consistent with severe sepsis, present on admission Source: Pneumonia SIRS: tachypnea, tachycardia Lactic acidosis noted Follow blood cultures Full 30 mL/kg body weight IV fluid bolus was not administered on presentation due to concern for cardiac dysfunction significantly elevated proBNP Continue broad-spectrum antibiotics tailored towards pneumonia (2) Acute on chronic hypoxic respiratory failure: Acute on chronic hypoxic respiratory failure Respiratory status is improved, he is currently down to his baseline of 2 L Provide supplemental oxygen support Encourage pulmonary toilet. Supportive care Continue treating underlying COPD Follow-up echo results to evaluate for underlying cardiac dysfunction (3) Acute kidney injury: Acute kidney injury suspected to be prerenal in the setting of sepsis Renal function is improving, creatinine 1.6 today Continue maintenance IV fluids until further improvement in renal function Monitor for fluid overload Strict I's and O's Renally dose meds No hydronephrosis on CT Urine electrolytes pending Follow-up renal ultrasound results (4) COPD with acute exacerbation: Continue IV systemic steroids, can likely transition to prednisone soon Pulmicort Breathing treatments (5) Pneumonia: Continue ceftriaxone and doxycycline (04/27-p) (6) Cachexia: Encourage oral intake (7) Has no electricity in home: Patient's reportedly out of electricity, unable to utilize home oxygen as such (8) Transaminitis: Suspect secondary to sepsis Liver enzymes continue to improve CT with no acute findings regarding liver Acute hepatitis panel is pending Avoid hepatotoxins Trend CMP Plan DVT prophylaxis: Heparin 04/30/2024 overall pt is improving on O2 at this time consistent with his baseline o2 at home feeling better plan for potential dc in AM' low P: will order [facility] PDMP PDMP Reviewed: Not Reviewed Attestations 2 Medical Necessity Statement*: possible dc in am if continues to improve Diagnoses Sepsis A41.9 Acute on chronic hypoxic respiratory failure J96.21 Acute kidney injury N17.9 COPD with acute exacerbation J44.1 Pneumonia J18.9 Cachexia R64 Has no electricity in home Z59.12 Transaminitis R74.01
[2024-04-29] MEDS: phosphorus 250 mg Tablet PO ×2 (16:36→21:28)
[2024-04-29] MEDS: cefTRIAXone 1,000 mg SDV 1000 MG IVP (21:28)
[2024-04-30] VITALS (16 sets, daily range): BP systolic 112–183; BP diastolic 74–96; PULSE 75–95; RESP 16–20; TEMP 36.3–36.8; O2SAT 88–99
[2024-04-30] MEDS: ipratropium-albuterol 3 mL Neb INHALATION ×4 (00:50→20:10)
[2024-04-30] MEDS: sodium chloride 0.9% 1,000 ML 75 ML IV ×2 (03:02→18:04)
[2024-04-30] MEDS: methylPREDNISolone sod succ 40 mg/mL INJ IVP ×4 (03:03→21:33)
[2024-04-30] MEDS: doxycycline 100 MG in sodium chloride 0.9% (plus) 100 ML IV ×2 (05:50→17:03)
[2024-04-30 06:15] LABS: Basophils % 0.1 %; Hematocrit 34.3 % (37-53); Lymphocytes # 0.3 10^3/uL (0.8-4.8); Mean Corpuscular HGB Conc 30.6 g/dL (30-55); Mean Corpuscular Hemoglobin 25.1 pg (27-33); Mean Corpuscular Volume 82.1 fl (82-101); Mean Platelet Volume 9.2 fL (7.4-10.4); Monocytes # 0.2 10^3/uL (0.2-0.9); Monocytes % 2.5 %; Neutrophils # 8.01 10^3/uL (1.8-7.7); Neutrophils % 93.5 %; Nucleated Red Blood Cells % 0 %; Platelet Count 193 10^3/cmm (157-399); Red Blood Count 4.18 10^6/uL (3.85-5.65); Red Cell Distribution Width 14.9 % (12.1-15.1); White Blood Count 8.57 10^3/uL (3.29-11.43)
[2024-04-30 06:37] LABS: Albumin Level 2.9 g/dL (3.5-5.2); Alkaline Phosphatase 99 U/L (40-130); Anion Gap 10.1 (5-19); Aspartate Amino Transferase 238 U/L (0-40); Blood Urea Nitrogen 25 mg/dL (8-23); Calcium 8.2 mg/dL (8.5-10.5); Carbon Dioxide 29 mmol/L (22-29); Chloride 104 mmol/L (98-107); Creatinine Clr Calc Pharmacy 74.7911; Globulin 2.6 g/dL (1.3-4.6); Glucose 128 mg/dL (65-115); Magnesium 1.9 mg/dL (1.7-2.3); Osmolality Calculated 294 mOsm/kg (285-295); Potassium 4.1 mmol/L (3.5-5.1); Sodium 139 mmol/L (136-145); Total Bilirubin 0.7 mg/dL (0.15-1.2); Total Protein 5.5 g/dL (6.6-8.7)
[2024-04-30 06:49] LABS: Alanine Aminotransferase 887 U/L (0-41)
[2024-04-30] MEDS: heparin 5,000 unit/mL INJ 1 mL 5000 UNIT SUBCUT ×2 (09:20→21:33)
--- NOTE | 2024-04-30 16:13 | PM.PN ---
Subjective Subjective: Seen today. No acute events overnight. Liver enzymes are starting to come down. Vitals/I&O/Wt Last Vital Signs Temp 97.7 F 04/30/24 11:17 Pulse 82 04/30/24 15:15 Resp 16 04/30/24 15:15 BP 143/77 04/30/24 11:17 Pulse Ox 96 04/30/24 15:15 O2 Del Method Nasal Cannula 04/30/24 15:15 O2 Flow Rate 2 04/30/24 15:15 04/30/24 04/30/24 04/30/24 06:59 14:59 22:59 Intake Total 977.5 / 3617.5 1260 / 1260 Output Total 950 / 2450 900 / 900 Balance 27.5 / 1167.5 360 / 360 Weight last 48 hrs Weight 58.145 kg Weight 58.151 kg Physical Exam Narrative: General: Patient is awake. cachectic appearing. Cardiovascular: Regular rhythm. No gallops. No murmurs. Lungs: Breath sounds remain diminished in bilateral bases. mainly clear with fair b/l air entry Abdomen: Scaphoid abdomen. Nontender. Extremities: No cyanosis or clubbing. Musculoskeletal: No swollen or erythematous joints. Neurological: Moves all 4 extremities. No myoclonus. Data 04/30/24 05:31 04/30/24 05:31 A&P Assessment and plan (1) Sepsis: Presentation consistent with severe sepsis, present on admission Source: Pneumonia SIRS: tachypnea, tachycardia Lactic acidosis noted Follow blood cultures Full 30 mL/kg body weight IV fluid bolus was not administered on presentation due to concern for cardiac dysfunction significantly elevated proBNP Continue broad-spectrum antibiotics tailored towards pneumonia (2) Acute on chronic hypoxic respiratory failure: Acute on chronic hypoxic respiratory failure Respiratory status is improved, he is currently down to his baseline of 2 L Provide supplemental oxygen support Encourage pulmonary toilet. Supportive care Continue treating underlying COPD Follow-up echo results to evaluate for underlying cardiac dysfunction (3) Acute kidney injury: Acute kidney injury suspected to be prerenal in the setting of sepsis Renal function is improving, creatinine 1.6 today Continue maintenance IV fluids until further improvement in renal function Monitor for fluid overload Strict I's and O's Renally dose meds No hydronephrosis on CT Urine electrolytes pending Follow-up renal ultrasound results (4) COPD with acute exacerbation: Continue IV systemic steroids, can likely transition to prednisone soon Pulmicort Breathing treatments (5) Pneumonia: Continue ceftriaxone and doxycycline (04/27-p) (6) Cachexia: Encourage oral intake (7) Has no electricity in home: Patient's reportedly out of electricity, unable to utilize home oxygen as such (8) Transaminitis: Suspect secondary to sepsis Liver enzymes continue to improve CT with no acute findings regarding liver Acute hepatitis panel is pending Avoid hepatotoxins Trend CMP Plan DVT prophylaxis: Heparin 04/30/2024 overall pt is improving on O2 at this time consistent with his baseline o2 at home feeling better plan for potential dc in AM' Liver enzymes significantly elevated however continuing to improve. Hepatitis panel is negative at this time. Elevation most likely secondary to sepsis. Patient will qualify for oxygen at time of discharge secondary to his COPD. PDMP PDMP Reviewed: Not Reviewed Attestations Medical Necessity Statement*: Patient requires continued hospitalization for monitoring of liver enzymes. Still significantly elevated. Coding Level of Care Code Acute Code for [facility] Diagnoses Sepsis A41.9 Acute on chronic hypoxic respiratory failure J96.21 Acute kidney injury N17.9 COPD with acute exacerbation J44.1 Pneumonia J18.9 Cachexia R64 Has no electricity in home Z59.12 Transaminitis R74.01
[2024-04-30] MEDS: budesonide 0.5 mg/2 mL Neb INHALATION (20:10)
[2024-04-30] MEDS: cefTRIAXone 1,000 mg SDV 1000 MG IVP (21:33)
[2024-05-01] VITALS (11 sets, daily range): BP systolic 153–183; BP diastolic 72–96; PULSE 68–98; RESP 16–24; TEMP 36.4–36.8; O2SAT 91–100
[2024-05-01] MEDS: ipratropium-albuterol 3 mL Neb INHALATION ×3 (00:22→07:29)
[2024-05-01] MEDS: sodium chloride 0.9% 1,000 ML 75 ML IV (05:12)
[2024-05-01] MEDS: doxycycline 100 MG in sodium chloride 0.9% (plus) 100 ML IV (05:12)
[2024-05-01] MEDS: methylPREDNISolone sod succ 40 mg/mL INJ IVP ×2 (05:12→08:50)
[2024-05-01 06:01] LABS: Alkaline Phosphatase 94 U/L (40-130); Anion Gap 10.9 (5-19); Aspartate Amino Transferase 152 U/L (0-40); Blood Urea Nitrogen 22 mg/dL (8-23); Calcium 8.3 mg/dL (8.5-10.5); Carbon Dioxide 31 mmol/L (22-29); Chloride 102 mmol/L (98-107); Creatinine Clr Calc Pharmacy 74.7911; Globulin 2.4 g/dL (1.3-4.6); Glucose 129 mg/dL (65-115); Osmolality Calculated 295 mOsm/kg (285-295); Potassium 3.9 mmol/L (3.5-5.1); Sodium 140 mmol/L (136-145); Total Bilirubin 0.7 mg/dL (0.15-1.2); Total Protein 5.4 g/dL (6.6-8.7)
[2024-05-01 06:14] LABS: Alanine Aminotransferase 715 U/L (0-41)
[2024-05-01] MEDS: budesonide 0.5 mg/2 mL Neb INHALATION (07:29)
[2024-05-01] MEDS: heparin 5,000 unit/mL INJ 1 mL 5000 UNIT SUBCUT (08:44)
--- NOTE | 2024-05-01 13:42 | PM.DCS ---
Discharge Providers Date of Admission: 04/28/24 14:49 Date of Discharge: May 01, 2024 Attending Provider at Admission: Johnny Jessica MD Attending Provider at Discharge: Jagruti Gerard MD Primary Care Provider: KYRA De La Cruz Diagnoses at Discharge Discharge Diagnosis (1) Sepsis: Status: Resolved (2) Acute on chronic hypoxic respiratory failure: Status: Resolved (3) Acute kidney injury: Status: Resolved (4) COPD with acute exacerbation: Status: Acute (5) Pneumonia: Status: Acute (6) Cachexia: Status: Acute (7) Has no electricity in home: Status: Acute (8) Transaminitis: Status: Acute Reason for Visit Reason for Visit: sob Hospital Course Hospital Course Patient admitted for sepsis secondary to pneumonia and had acute on chronic hypoxic respiratory failure. Also had an ANTONINA. He was treated and improved. Also had a transaminitis. Most likely secondary to sepsis at this time. Hepatitis panel negative. Patient discharged home as liver enzymes trending down. He is given repeat labs to follow-up with his primary care doctor. Advised to come back to the hospital should he experience any other symptoms. Patient agreeable. Of note CT chest abdomen pelvis did show patchy consolidation pronounced in right middle and right lower lobe compatible with multifocal focal infection. Severe emphysema. Bilateral nonobstructing renal calculi no evidence of obstructive uropathy. Small volume free fluid nonspecific. Physical Exam Narrative: General: Patient is awake. Cachectic appearing. Cardiovascular: Regular rhythm. No gallops. No murmurs. Lungs: Breath sounds remain diminished in bilateral bases. mainly clear with fair b/l air entry Abdomen: Scaphoid abdomen. Nontender. Extremities: No cyanosis or clubbing. Musculoskeletal: No swollen or erythematous joints. Neurological: Moves all 4 extremities. No myoclonus. Discharge Data Studies Completed and Pending Completed Studies During Hospitalization Category [place] [id number] Stat Cat Scan 04/27/24 18:40 Completed XR chest 1V portable [id number] Stat Exams 04/27/24 16:55 Completed CV. echo complete* [id number] Stat Ultrasound 04/28/24 18:33 Completed US renal BI* [id number] Stat Ultrasound 04/28/24 18:36 Completed Pending at discharge Category Date Time Status Blood Culture Stat Lab 04/27/24 17:16 Results Sputum Culture and Gram Stain Routine Lab 04/27/24 20:24 Uncollected Radiology Impressions Chest X-Ray 04/27/24 16:55 IMPRESSION: 1. Patchy airspace opacities in the right mid lung are new from prior and may represent developing infiltrate. 2. Remainder stable. Chest/Abdomen/Pelvis CT 04/27/24 18:40 IMPRESSION: 1. Patchy consolidation most pronounced in the right middle lobe and right lower lobe, compatible with multifocal infection. Recommend imaging follow-up after clinical treatment to document resolution. 2. Severe emphysema. 3. Dilated main pulmonary artery can be seen with pulmonary arterial hypertension. 4. Remainder stable. IMPRESSION: 1. Bilateral nonobstructing renal calculi. No evidence of obstructive uropathy. 2. Small volume free fluid is nonspecific. Consider short interval follow-up CT abdomen/pelvis with contrast for further evaluation. 3. Additional ancillary/chronic findings as above are similar to prior. Renal Ultrasound 04/28/24 18:36 IMPRESSION: 1. Mild right hydronephrosis. 2. Bilateral renal cysts. 3. Exophytic 1.6 cm bladder lesion, suggestive of a bladder polyp. Laboratory Results WBC 8.57 10^3/uL (3.29-11.43) 04/30/24 05:31 RBC 4.18 10^6/uL (3.85-5.65) 04/30/24 05:31 Hgb 10.50 g/dL (11.27-16.99) L 04/30/24 05:31 Hct 34.3 % (37-53) L 04/30/24 05:31 MCV 82.1 fl (82-101) 04/30/24 05:31 MCH 25.1 pg (27-33) L 04/30/24 05:31 MCHC 30.6 g/dL (30-55) 04/30/24 05:31 RDW 14.9 % (12.1-15.1) 04/30/24 05:31 Plt Count 193 10^3/cmm (157-399) 04/30/24 05:31 MPV 9.2 fL (7.4-10.4) 04/30/24 05:31 Neut % (Auto) 93.5 % 04/30/24 05:31 Lymph % (Auto) 3.0 % 04/30/24 05:31 [place] % (Auto) 2.5 % 04/30/24 05:31 Eos % (Auto) 0.0 % 04/30/24 05:31 Baso % (Auto) 0.1 % 04/30/24 05:31 Neut # (Auto) 8.01 10^3/uL (1.8-7.7) H 04/30/24 05:31 Lymph # (Auto) 0.3 10^3/uL (0.8-4.8) L 04/30/24 05:31 [place] # (Auto) 0.2 10^3/uL (0.2-0.9) 04/30/24 05:31 Eos # (Auto) 0.0 10^3/uL (0.0-0.8) 04/30/24 05:31 Baso # (Auto) 0.0 10^3/uL (0.0-0.1) 04/30/24 05:31 Nucleated RBC % (auto) 0 % 04/30/24 05:31 Nucleated RBCs # 0.0 /100WBC 04/30/24 05:31 Specimen Type Arterial 04/27/24 17:17 Sample Site Radial, left 04/27/24 17:17 ABG pH 7.37 (7.35-7.45) 04/27/24 17:17 ABG pCO2 43.2 mmHg (35-45) 04/27/24 17:17 ABG pO2 84.1 mmHg (80.0-100.0) 04/27/24 17:17 ABG PO2/FiO2 Ratio 233 04/27/24 17:17 ABG HCO3 24.7 mmol/L (22-26) 04/27/24 17:17 ABG O2 Saturation 95.0 04/27/24 17:17 ABG Base Excess -0.8 mmol/L (-2.0-2.0) 04/27/24 17:17 Rodrigo Test Pos 04/27/24 17:17 A-a O2 Gradient 14.7 mmHg (5-10) H 04/27/24 17:17 Hematocrit 39.4 % (42-52) L 04/27/24 17:17 Hgb O2 Saturation 93.7 % (95-100) L 04/27/24 17:17 Carboxyhemoglobin 1.0 %THgb (0.4-20.1) 04/27/24 17:17 Methemoglobin 0.4 % (0.4-1.5) 04/27/24 17:17 Total Hemoglobin 12.8 g/dL (14-18) L 04/27/24 17:17 Sodium 136.0 mmol/L (131-143) 04/27/24 17:17 Potassium 4.6 mmol/L (3.5-5.0) 04/27/24 17:17 Glucose 185.0 mg/dL (70-115) H 04/27/24 17:17 Ionized Calcium 1.1 mmol/L (1.1-1.4) 04/27/24 17:17 O2 Delivery Device Nc 04/27/24 17:17 O2 Liters/Min 4.0 % 04/27/24 17:17 FiO2 36.0 % 04/27/24 17:17 Redipper ID Monro 04/27/24 17:17 Sodium 140 mmol/L (136-145) 05/01/24 04:54 Potassium 3.9 mmol/L (3.5-5.1) 05/01/24 04:54 Chloride 102 mmol/L (98-107) 05/01/24 04:54 Carbon Dioxide 31 mmol/L (22-29) H 05/01/24 04:54 Anion Gap 10.9 (5-19) 05/01/24 04:54 BUN 22 mg/dL (8-23) 05/01/24 04:54 Creatinine 0.7 mg/dL (0.7-1.2) 05/01/24 04:54 GFR Calculation Not Reportable 05/01/24 04:54 Glucose 129 mg/dL (65-115) H 05/01/24 04:54 Calculated Osmolality 295 mOsm/kg (285-295) 05/01/24 04:54 Lactic Acid 3.1 mmol/L (0.5-2.2) H 04/27/24 17:20 Lactic Acid (Sepsis) 2.3 mmol/L (0.5-2.2) H 04/27/24 20:00 Calcium 8.3 mg/dL (8.5-10.5) L 05/01/24 04:54 Phosphorus 1.6 mg/dL (2.5-4.5) L 04/29/24 02:51 Magnesium 1.9 mg/dL (1.7-2.3) 04/30/24 05:31 Total Bilirubin 0.7 mg/dL (0.15-1.2) 05/01/24 04:54 AST 152 U/L (0-40) H 05/01/24 04:54 ALT 715 U/L (0-41) H 05/01/24 04:54 Alkaline Phosphatase 94 U/L (40-130) 05/01/24 04:54 Troponin T Baseline 103 ng/L (0-15) H* 04/27/24 18:24 Troponin T 120 Minute 95.31 ng/L (0-15) H 04/27/24 20:00 Delta Troponin T -7.69 ABS# (0-10) L 04/27/24 20:00 Troponin T Hi Sens 6Hr 73.73 ng/L (0-15) H 04/28/24 01:01 Troponin T Hi Sens 6Hr Delta -29.27 ng/L (0-12) L 04/28/24 01:01 C-Reactive Protein 144.4 mg/L (0.0-4.9) H 04/28/24 01:01 NT-Pro-B Natriuret Pep 07728 pg/mL (0-125) H 04/27/24 17:20 Total Protein 5.4 g/dL (6.6-8.7) L 05/01/24 04:54 Albumin 3.0 g/dL (3.5-5.2) L 05/01/24 04:54 Globulin 2.4 g/dL (1.3-4.6) 05/01/24 04:54 Procalcitonin 0.83 ng/mL (0-0.5) H 04/28/24 09:01 Ur Random Sodium 10 mmol/L 04/27/24 16:25 Ur Random Potassium 26 mmol/L 04/27/24 16:25 Ur Random Chloride 17 mmol/L 04/27/24 16:25 Hepatitis A IgM Ab Non-reactive (Nonreactive) 04/28/24 09:01 Hep Bs Antigen Non-reactive (Nonreactive) 04/28/24 09:01 Hep B Core IgM Ab Non-reactive (Nonreactive) 04/28/24 09:01 Hepatitis C Antibody Non-reactive (Nonreactive) 04/28/24 09:01 Influenza A (PCR) Negative (Negative) 04/27/24 17:17 Influenza Type B (PCR) Negative (Negative) 04/27/24 17:17 RSV (PCR) Negative (Negative) 04/27/24 17:17 SARS-CoV-2 (PCR) Negative (Negative) 04/27/24 17:17 Vitals Last Vital Signs Temp 97.6 F 05/01/24 11:32 Pulse 98 05/01/24 11:32 Resp 17 05/01/24 11:32 BP 169/79 05/01/24 13:16 Pulse Ox 96 05/01/24 11:32 O2 Del Method Nasal Cannula 05/01/24 11:32 O2 Flow Rate 2 05/01/24 08:00 Discharge Plan Discharge Patient Disposition: Home Condition: Stable Prescriptions: New prednisone 20 mg tablet See Rx Instructions .ROUTE .COMPLEX Qty: 17 0RF Rx Instructions: 60 mg x 2 days 40 mg x 3 days 20 mg x 3 days 10 mg x 3 days then stop Continued albuterol sulfate 2.5 mg /3 mL (0.083 %) solution for nebulization 2.5 mg INHALATION TID PRN (Reason: wheezing) Qty: 180 5RF Patient Comments: Hasn't taken for several months fluticasone propion-salmeterol [Advair Diskus] 100-50 mcg/dose blister with device 1 inh inhalation BID Qty: 60 5RF tiotropium bromide [Spiriva with HandiHaler] 18 mcg capsule, w/inhalation device 1 cap inhalation DAILY Qty: 30 5RF Rx Instructions: puncture 1 cap using device; one dose = 2 inhalations albuterol sulfate 90 mcg/actuation HFA aerosol inhaler 2 puff inhalation QID PRN (Reason: shortness of breath or wheezing) 30 Days Qty: 6.7 5RF (DME) nebulizer accessories Kit See Rx Instructions .Route Qty: 1 0RF Rx Instructions: As directed Discharge Orders: Discharge Order (Routine); Ordered 05/01/24 Ordered By: Jagruti Gerard Other Ambulatory Orders: DME: Oxygen (Order) Location: None Selected Ordered By: Jagruti Gerard Comprehensive Metabolic Panel (Routine) Timeframe: [id number] Facility: [facility] - Location: [facility] Ordered By: Jagruti Gerard Referrals: Misael Hayden [Referring] - 4-7 days (Renal cyst, bladder lesion) Mandi Head, AUSTYNC [Primary Care Provider] - 05/09/24 1:00 pm (Arrive 30 minutes prior to appointment for labs. ) Discharge Diet: Cardiac Discharge Activity: Oxygen as instructed Patient Instructions: COPD, Prednisone (By mouth), Levofloxacin (By mouth), Viral Pneumonia (DC), COPD Stoplight, Opioid Safety, Pneumonia Stoplight Discharge Attestations Time Spent in Discharge Care*: greater than 30 min Status at Discharge: Cognitive status at discharge: cognitively intact, Behavioral status at discharge: cooperative, Quality Metrics Clinical Quality Measures [ No reported AMI, CVA or VTE this stay] Coding Level of Care Code Acute Code for [facility] Diagnoses Sepsis A41.9 Acute on chronic hypoxic respiratory failure J96.21 Acute kidney injury N17.9 COPD with acute exacerbation J44.1 Pneumonia J18.9 Cachexia R64 Has no electricity in home Z59.12 Transaminitis R74.01
--- NOTE | 2024-05-01 15:09 | PC.NURSE ---
Discussed discharge plans, follow up appointments and new medications. Explained the tampering of prednisone to patient with a teach back. Patient understands he has oxygen and is here to go home with him. Patient verbalized understanding on all things and questions answered.
== END 2024-05-01 17:25 | disposition home or self-care (01) | DRG 871 ==
LOC: ER 18:15 → MEDSURG 20:10
PROVIDERS: Admitting Provider Internal Medicine; Emergency Provider Emergency Medicine; PCP Nurse Practitioner; Visit Provider Internal Medicine
DX: A41.9 Sepsis, unspecified organism (principal); J18.9 Pneumonia, unspecified organism; J96.20 Acute and chronic respiratory failure, unspecified whether with hypoxia or hypercapnia; N17.9 Acute kidney failure, unspecified; J44.0 Chronic obstructive pulmonary disease with (acute) lower respiratory infection; J44.1 Chronic obstructive pulmonary disease with (acute) exacerbation; R64 Cachexia; Z68.1 Body mass index [BMI] 19.9 or less, adult; R65.20 Severe sepsis without septic shock; Z99.81 Dependence on supplemental oxygen; R74.01 Elevation of levels of liver transaminase levels; J43.9 Emphysema, unspecified; Z87.891 Personal history of nicotine dependence; Z86.711 Personal history of pulmonary embolism
CPT/HCPCS: 36415; 36600; 71045; 71250; 74176; 76770; 80051; 80053; 80074; 82330; 82436; 82805; 83605; 83735; 83880; 84100; 84133; 84145; 84300; 84484; 85025; 86140; 86403; 87040; 87637; 93005; 93306; 94640; 94760; 96365; 96372; 97110; 97116; 97161; 99285; G0378; J0696; J1644; J2919; J3490; J7030; J7613; J7626; J9999

== ENCOUNTER → 2024-10-22 16:44 | Outpatient (BNVA) | payer MEDICAID, SELFPAY | PROVIDERS: PCP Nurse Practitioner; Visit Provider Nurse Practitioner | DX: D64.9 Anemia, unspecified (principal); J44.9 Chronic obstructive pulmonary disease, unspecified; R73.9 Hyperglycemia, unspecified | CPT/HCPCS: 80053; 83036; 83550; 84443; 85025 ==